=== PATIENT | female | born 1990 | race African-American/Black ===

== ENCOUNTER 2017-06-22 09:01 | Inpatient (IN) | payer OTHER ==
[~2017-06-22] VITALS: Ht 157.5 cm; Wt 139.7 kg
--- NOTE | 2017-06-22 09:21 | PHYS DOC ---
Adult General Chief Complaint Chief Complaint: ABDOMINAL PAIN HPI HPI Patient is a 26 year old female presents to the ED complaining of epigastric pain for the last 4 days. Patient describes the pain as sharp and burning. Associated symptoms include episodes of vomiting but no diarrhea. States she was diagnosed with gallstones back in last August. States the pain is now constant and not alleviating.Spicy foods and eating makes the pain worse. Seen on 06/20 at [facility], Sent to ED today for direct admission by Dr. Esquivel today (Imaging reports at bedside). Denies chest pain, shortness of breath, fever, dizziness, diarrhea, bloody stools or headaches. Review of Systems Review of Systems Constitutional: Denies fever or chills [] Eyes: Denies change in visual acuity, redness, or eye pain [] HENT: Denies nasal congestion or sore throat [] Respiratory: Denies cough or shortness of breath [] Cardiovascular: No additional information not addressed in HPI [] GI: Complains of abdominal pain, nausea, vomiting. Denies bloody stools or diarrhea [] : Denies dysuria or hematuria [] Musculoskeletal: Denies back pain or joint pain [] Integument: Denies rash or skin lesions [] Neurologic: Denies headache, focal weakness or sensory changes [] Endocrine: Denies polyuria or polydipsia [] Current Medications Current Medications Current Medications Medications (Trade) Dose Ordered Sig/Mino Start Time Stop Time Status Last Admin Dose Admin Hydromorphone HCl (Dilaudid) 0.5 mg 1X ONCE 06/22/17 10:15 06/22/17 10:16 DC 06/22/17 10:44 0.5 MG Ondansetron HCl (Zofran) 4 mg 1X ONCE 06/22/17 10:15 06/22/17 10:16 DC 06/22/17 10:44 4 MG Piperacillin Sod/ Tazobactam Sod 4.5 gm/Sodium Chloride 100 ml @ 200 mls/hr 1X ONCE 06/22/17 10:15 06/22/17 10:44 DC 06/22/17 10:45 200 MLS/HR Sodium Chloride 1,000 ml @ 1,000 mls/hr 1X ONCE 06/22/17 10:15 06/22/17 11:14 DC 06/22/17 10:40 1,000 MLS/HR Allergies Allergies Allergies Coded Allergies Type Severity Reaction Last Updated Verified No Known Drug Allergies 06/22/17 No Physical Exam Physical Exam Constitutional: Well developed, well nourished, no acute distress, non-toxic appearance. [] HENT: Normocephalic, atraumatic, bilateral external ears normal, oropharynx moist, no oral exudates, nose normal. [] Eyes: PERRLA, EOMI, conjunctiva normal, no discharge. [] Neck: Normal range of motion, no tenderness, supple, no stridor. [] Cardiovascular:Heart rate regular rhythm, no murmur [] Lungs & Thorax: Bilateral breath sounds clear to auscultation [] Abdomen: MILD RUQ TENDERNESS. Bowel sounds normal, soft, no masses, no pulsatile masses. [] Skin: Warm, dry, no erythema, no rash. [] Back: No tenderness, no CVA tenderness. [] Extremities: No tenderness, no cyanosis, no clubbing, ROM intact, no edema. [] Neurologic: Alert and oriented X 3, normal motor function, normal sensory function, no focal deficits noted. [] Psychologic: Affect normal, judgement normal, mood normal. [] Current Patient Data Vital Signs Vital Signs Date Time Temp Pulse Resp B/P (MAP) Pulse Ox O2 Delivery O2 Flow Rate FiO2 06/22/17 10:19 76 20 120/59 (79) 99 Room Air 06/22/17 09:20 99.4 99.4 Lab Values Laboratory Tests Test 06/22/17 09:10 06/22/17 09:16 06/22/17 09:35 06/22/17 10:25 Urine Collection Type Unknown Urine Color [place] Urine Clarity Clear Urine pH 6.0 Urine Specific [place] 1.020 Urine Protein Negative mg/dL (NEG-TRACE) Urine Glucose (UA) Negative mg/dL (NEG) Urine Ketones (Stick) 40 mg/dL (NEG) Urine Blood Negative (NEG) Urine Nitrite Negative (NEG) Urine Bilirubin Moderate (NEG) Urine Urobilinogen Dipstick 1.0 mg/dL (0.2 mg/dL) Urine Leukocyte Esterase Moderate (NEG) Urine RBC 0 /HPF (0-2) Urine WBC 5-10 /HPF (0-4) Urine Squamous Epithelial Cells Many /LPF Urine Bacteria Few /HPF (0-FEW) Urine Mucus Mod /LPF POC Urine HCG, Qualitative Hcg negative (Negative) Prothrombin Time 13.3 SEC (11.7-14.0) Prothrombin Time INR 1.1 (0.8-1.1) PTT 28 SEC (24-38) Sodium Level 139 mmol/L (136-145) Potassium Level 3.5 mmol/L (3.5-5.1) Chloride Level 103 mmol/L (98-107) Carbon Dioxide Level 28 mmol/L (21-32) Anion Gap 8 (6-14) Blood Urea Nitrogen 9 mg/dL (7-20) Creatinine 0.8 mg/dL (0.6-1.0) Estimated GFR (Cockcroft-Gault) 103.3 BUN/Creatinine Ratio 11 (6-20) Glucose Level 94 mg/dL (70-99) Calcium Level 8.8 mg/dL (8.5-10.1) Total Bilirubin 2.7 mg/dL (0.2-1.0) H Aspartate Amino Transferase (AST) 106 U/L (15-37) H Alanine Aminotransferase (ALT) 218 U/L (14-59) H Alkaline Phosphatase 212 U/L (46-116) H Total Protein 7.4 g/dL (6.4-8.2) Albumin 3.2 g/dL (3.4-5.0) L Albumin/Globulin Ratio 0.8 (1.0-1.7) L Lipase 689 U/L (73-393) H White Blood Count 7.2 x10^3/uL (4.0-11.0) Red Blood Count 4.45 x10^6/uL (3.50-5.40) Hemoglobin 12.9 g/dL (12.0-15.5) Hematocrit 38.2 % (36.0-47.0) Mean Corpuscular Volume 86 fL (79-100) Mean Corpuscular Hemoglobin 29 pg (25-35) Mean Corpuscular Hemoglobin Concent 34 g/dL (31-37) Red Cell Distribution Width 13.7 % (11.5-14.5) Platelet Count 196 x10^3/uL (140-400) Neutrophils (%) (Auto) 70 % (31-73) Lymphocytes (%) (Auto) 22 % (24-48) L Monocytes (%) (Auto) 7 % (0-9) Eosinophils (%) (Auto) 1 % (0-3) Basophils (%) (Auto) 1 % (0-3) Neutrophils # (Auto) 5.0 x10^3uL (1.8-7.7) Lymphocytes # (Auto) 1.6 x10^3/uL (1.0-4.8) Monocytes # (Auto) 0.5 x10^3/uL (0.0-1.1) Eosinophils # (Auto) 0.1 x10^3/uL (0.0-0.7) Basophils # (Auto) 0.1 x10^3/uL (0.0-0.2) Laboratory Tests 06/22/17 10:25 Laboratory Tests 06/22/17 09:35 EKG EKG [] Radiology/Procedures Radiology/Procedures [] Course & Med Decision Making Course & Med Decision Making Pertinent Labs and Imaging studies reviewed. (See chart for details) []Discussed labs and previous imaging with Dr. Neff. Agrees to admission and further management of patient. Spoke with Dr. Yost (GI) and Dr. Mcdonough ( Surgeon) who will see patient. Patient stable for admission. Patient well appearing. Pain controlled. Vitals stable, NAD. Dragon Disclaimer Dragon Disclaimer This electronic medical record was generated, in whole or in part, using a voice recognition dictation system. Departure Departure Impression: Primary Impression: Abdominal pain Additional Impressions: Cholelithiasis Pancreatitis Disposition: ADMITTED INPATIENT Admitting Physician: Deysi Neff Condition: STABLE Referrals: BOB MCKEON MD (PCP) Problem Qualifiers STEPHANIA NEWTON Jun 22, 2017 09:21
[2017-06-22 09:32] LABS: BILIRUBIN,URINE MODERATE (NEG); GLUCOSE,URINE NEGATIVE (NEG); NITRITE,URINE NEGATIVE (NEG); PROTEIN,URINE NEGATIVE (NEG-TRACE)
[2017-06-22 09:49] LABS: BACTERIA,URINE FEW /HPF (0-FEW); RBC,URINE 0 /HPF (0-2); SQUAMOUS EPITHELIAL CELL,UR MANY /LPF
[2017-06-22 09:57] LABS: INR 1.1 (0.8-1.1); PROTHROMBIN TIME PATIENT 13.3 SEC (11.7-14.0)
[2017-06-22 09:58] LABS: CALCIUM 8.8 mg/dL (8.5-10.1); CREATININE 0.8 mg/dL (0.6-1.0); GFR 103.3; POTASSIUM 3.5 mmol/L (3.5-5.1)
[2017-06-22 10:03] LABS: ALBUMIN 3.2 g/dL (3.4-5.0); ALBUMIN/GLOBULIN RATIO 0.8 (1.0-1.7); TOTAL BILIRUBIN 2.7 mg/dL (0.2-1.0); TOTAL PROTEIN 7.4 g/dL (6.4-8.2)
[2017-06-22] MEDS ORDERED: HYDROmorphone 2 MG/ML VIAL IV ONE (10:15)
[2017-06-22] MEDS ORDERED: ONDANSETRON PF 4 MG/2 ML VIAL. IV ONE (10:15)
[2017-06-22] MEDS ORDERED: IV NORMAL SALINE 1000ML BAG 1,000 ML IV ONE (10:15)
[2017-06-22] MEDS ORDERED: PIPERACILLIN/TAZOBACTAM 4.5 GM in IV NORMAL SALINE 100ML 100 ML IV ONE (10:15)
[2017-06-22 10:33] LABS: BASO # 0.1 x10^3/uL (0.0-0.2); BASO % 1 % (0-3); EOS % 1 % (0-3); HEMATOCRIT 38.2 % (36.0-47.0); HEMOGLOBIN 12.9 g/dL (12.0-15.5); LYMPH # 1.6 x10^3/uL (1.0-4.8); LYMPH % 22 % (24-48); MEAN CORPUSCULAR HEMOGLOBIN 29 pg (25-35); MEAN CORPUSCULAR HGB CONC 34 g/dL (31-37); MEAN CORPUSCULAR VOLUME 86 fL (79-100); MONO % 7 % (0-9); NEUT % 70 % (31-73); PLATELET COUNT 196 x10^3/uL (140-400); RED BLOOD COUNT 4.45 x10^6/uL (3.50-5.40); RED CELL DISTRIBUTION WIDTH 13.7 % (11.5-14.5); WHITE BLOOD COUNT 7.2 x10^3/uL (4.0-11.0)
[2017-06-22] MEDS ORDERED: ONDANSETRON PF 4 MG/2 ML VIAL. IV PRN (11:00)
[2017-06-22] MEDS ORDERED: MORPHINE SULFATE 2 MG/ML DISP.SYRIN. IV PRN (11:00)
[2017-06-22 11:30] VITALS: BP 112/53
--- NOTE | 2017-06-22 12:19 | PDOC2 ---
BEVERLY ELIZONDO LEATHER SCRUBBER 06/22/17 1218: CONSULT Date of Consult Date of Consult DATE: 06/22/17 TIME: 12:16 Reason for Consult Reason for Consult: cholelithiasis Referring Physician Referring Physician: ER Identification/Chief Complaint Chief Complaint abdominal pain Problems: Source Source: Chart review, Patient History of Present Illness Reason for Visit: Epigastric pain with radiation to back. Associated nausea and emesis. She has been having these symptoms since August (was seen at [facility] and found to have cholelithiasis). Seems aggravated by eating. Wednesday the pain returned , however did not improve. Seen at ER at [facility]--US showed cholelithiasis and normal lipase, T bili--mildly elevated AST/ALT. Pain continued and she came her. Past Medical History Past Medical History lupus, rheumatoid arthritis Past Surgical History Past Surgical History: Tubal Ligation Family History Family History: Other (+ gallbladder disease ) Social History No ALCOHOL: occassional Drugs: None Lives: with Family Current Problem List Problem List Problems Medical Problems: (1) Abdominal pain Status: Acute (2) Cholelithiasis Status: Acute Current Medications Current Medications Current Medications Piperacillin Sod/ Tazobactam Sod 4.5 gm/Sodium Chloride 100 ml @ 200 mls/hr 1X ONCE IV Last administered on 06/22/17 10:45; Start 06/22/17 at 10:15; Stop 06/22/17 at 10:44; Status DC Hydromorphone HCl (Dilaudid) 0.5 mg 1X ONCE IV Last administered on 06/22/17 10:44; Start 06/22/17 at 10:15; Stop 06/22/17 at 10:16; Status DC Ondansetron HCl (Zofran) 4 mg 1X ONCE IV Last administered on 06/22/17 10:44 ; Start 06/22/17 at 10:15; Stop 06/22/17 at 10:16; Status DC Sodium Chloride 1,000 ml @ 1,000 mls/hr 1X ONCE IV Last administered on t 10:40; Start 06/22/17 at 10:15; Stop 06/22/17 at 11:14; Status DC Ondansetron HCl (Zofran) 4 mg PRN Q8HRS PRN IV NAUSEA/VOMITING; Start 06/22/17 at 11:00; Stop 06/23/17 at 10:59 Morphine Sulfate 2 mg PRN Q2HR PRN IV PAIN; Start 06/22/17 at 11:00; Stop 06/23 at 10:59 Allergies Allergies: Coded Allergies: No Known Drug Allergies (Unverified , 06/22/17) ROS General: YES: Other (+ subjective fevers), No: Chills PSYCHOLOGICAL ROS: No: Anxiety, Depression Eyes: No Blurry vision, No Double vision HEENT: No: Heacaches, Sore Throat Hematological and Lymphatic: No: Bleeding Problems, Blood Clots Respiratory: YES: Shortness of breath (due to acute pain), No: Cough Cardiovascular: No Chest Pain, No Palpitations Gastrointestinal: Yes Other (see hpi) Genitourinary: No Dysuria, No Hematuria Musculoskeletal: No Joint Pain, No Muscle Pain Neurological: No Confusion, No Numbness/Tingling Skin: No Pruritus, No Rash Physical Exam General: Alert, Oriented X3, Cooperative, No acute distress HEENT: PERRLA, Mucous membr. moist/pink Lungs: Clear to auscultation, Normal air movement Heart: Regular rate, Normal S1, Normal S2, No murmurs Abdomen: Soft, Other (ND, ttp epigastric/RUQ, no LUQ TTP) Extremities: No clubbing, No cyanosis Skin: No rashes, No breakdown Neuro: Normal gait, Normal speech Psych/Mental Status: Mental status NL, Mood NL MUSCULOSKELETAL: No deformity, No swelling Vitals VITALS Vital Signs Date Time Temp Pulse Resp B/P (MAP) Pulse Ox O2 Delivery O2 Flow Rate FiO2 06/22/17 11:15 74 20 125/57 (79) 99 Room Air 06/22/17 09:20 99.4 99.4 Labs Labs Laboratory Tests Test 06/22/17 09:10 06/22/17 09:16 06/22/17 09:35 06/22/17 10:25 Urine Collection Type Unknown Urine Color [place] Urine Clarity Clear Urine pH 6.0 Urine Specific [place] 1.020 Urine Protein Negative mg/dL (NEG-TRACE) Urine Glucose (UA) Negative mg/dL (NEG) Urine Ketones (Stick) 40 mg/dL (NEG) Urine Blood Negative (NEG) Urine Nitrite Negative (NEG) Urine Bilirubin Moderate (NEG) Urine Urobilinogen Dipstick 1.0 mg/dL (0.2 mg/dL) Urine Leukocyte Esterase Moderate (NEG) Urine RBC 0 /HPF (0-2) Urine WBC 5-10 /HPF (0-4) Urine Squamous Epithelial Cells Many /LPF Urine Bacteria Few /HPF (0-FEW) Urine Mucus Mod /LPF Bedside Urine HCG, Qualitative Hcg negative (Negative) Prothrombin Time 13.3 SEC (11.7-14.0) Prothromb Time International Ratio 1.1 (0.8-1.1) Activated Partial Thromboplast Time 28 SEC (24-38) Sodium Level 139 mmol/L (136-145) Potassium Level 3.5 mmol/L (3.5-5.1) Chloride Level 103 mmol/L (98-107) Carbon Dioxide Level 28 mmol/L (21-32) Anion Gap 8 (6-14) Blood Urea Nitrogen 9 mg/dL (7-20) Creatinine 0.8 mg/dL (0.6-1.0) Estimated GFR (Cockcroft-Gault) 103.3 BUN/Creatinine Ratio 11 (6-20) Glucose Level 94 mg/dL (70-99) Calcium Level 8.8 mg/dL (8.5-10.1) Total Bilirubin 2.7 mg/dL (0.2-1.0) Aspartate Amino Transf (AST/SGOT) 106 U/L (15-37) Alanine Aminotransferase (ALT/SGPT) 218 U/L (14-59) Alkaline Phosphatase 212 U/L (46-116) Total Protein 7.4 g/dL (6.4-8.2) Albumin 3.2 g/dL (3.4-5.0) Albumin/Globulin Ratio 0.8 (1.0-1.7) Lipase 689 U/L (73-393) White Blood Count 7.2 x10^3/uL (4.0-11.0) Red Blood Count 4.45 x10^6/uL (3.50-5.40) Hemoglobin 12.9 g/dL (12.0-15.5) Hematocrit 38.2 % (36.0-47.0) Mean Corpuscular Volume 86 fL (79-100) Mean Corpuscular Hemoglobin 29 pg (25-35) Mean Corpuscular Hemoglobin Concent 34 g/dL (31-37) Red Cell Distribution Width 13.7 % (11.5-14.5) Platelet Count 196 x10^3/uL (140-400) Neutrophils (%) (Auto) 70 % (31-73) Lymphocytes (%) (Auto) 22 % (24-48) Monocytes (%) (Auto) 7 % (0-9) Eosinophils (%) (Auto) 1 % (0-3) Basophils (%) (Auto) 1 % (0-3) Neutrophils # (Auto) 5.0 x10^3uL (1.8-7.7) Lymphocytes # (Auto) 1.6 x10^3/uL (1.0-4.8) Monocytes # (Auto) 0.5 x10^3/uL (0.0-1.1) Eosinophils # (Auto) 0.1 x10^3/uL (0.0-0.7) Basophils # (Auto) 0.1 x10^3/uL (0.0-0.2) Laboratory Tests Test 06/22/17 09:10 06/22/17 09:16 06/22/17 09:35 06/22/17 10:25 Urine Collection Type Unknown Urine Color [place] Urine Clarity Clear Urine pH 6.0 Urine Specific [place] 1.020 Urine Protein Negative mg/dL (NEG-TRACE) Urine Glucose (UA) Negative mg/dL (NEG) Urine Ketones (Stick) 40 mg/dL (NEG) Urine Blood Negative (NEG) Urine Nitrite Negative (NEG) Urine Bilirubin Moderate (NEG) Urine Urobilinogen Dipstick 1.0 mg/dL (0.2 mg/dL) Urine Leukocyte Esterase Moderate (NEG) Urine RBC 0 /HPF (0-2) Urine WBC 5-10 /HPF (0-4) Urine Squamous Epithelial Cells Many /LPF Urine Bacteria Few /HPF (0-FEW) Urine Mucus Mod /LPF Bedside Urine HCG, Qualitative Hcg negative (Negative) Prothrombin Time 13.3 SEC (11.7-14.0) Prothromb Time International Ratio 1.1 (0.8-1.1) Activated Partial Thromboplast Time 28 SEC (24-38) Sodium Level 139 mmol/L (136-145) Potassium Level 3.5 mmol/L (3.5-5.1) Chloride Level 103 mmol/L (98-107) Carbon Dioxide Level 28 mmol/L (21-32) Anion Gap 8 (6-14) Blood Urea Nitrogen 9 mg/dL (7-20) Creatinine 0.8 mg/dL (0.6-1.0) Estimated GFR (Cockcroft-Gault) 103.3 BUN/Creatinine Ratio 11 (6-20) Glucose Level 94 mg/dL (70-99) Calcium Level 8.8 mg/dL (8.5-10.1) Total Bilirubin 2.7 mg/dL (0.2-1.0) Aspartate Amino Transf (AST/SGOT) 106 U/L (15-37) Alanine Aminotransferase (ALT/SGPT) 218 U/L (14-59) Alkaline Phosphatase 212 U/L (46-116) Total Protein 7.4 g/dL (6.4-8.2) Albumin 3.2 g/dL (3.4-5.0) Albumin/Globulin Ratio 0.8 (1.0-1.7) Lipase 689 U/L (73-393) White Blood Count 7.2 x10^3/uL (4.0-11.0) Red Blood Count 4.45 x10^6/uL (3.50-5.40) Hemoglobin 12.9 g/dL (12.0-15.5) Hematocrit 38.2 % (36.0-47.0) Mean Corpuscular Volume 86 fL (79-100) Mean Corpuscular Hemoglobin 29 pg (25-35) Mean Corpuscular Hemoglobin Concent 34 g/dL (31-37) Red Cell Distribution Width 13.7 % (11.5-14.5) Platelet Count 196 x10^3/uL (140-400) Neutrophils (%) (Auto) 70 % (31-73) Lymphocytes (%) (Auto) 22 % (24-48) Monocytes (%) (Auto) 7 % (0-9) Eosinophils (%) (Auto) 1 % (0-3) Basophils (%) (Auto) 1 % (0-3) Neutrophils # (Auto) 5.0 x10^3uL (1.8-7.7) Lymphocytes # (Auto) 1.6 x10^3/uL (1.0-4.8) Monocytes # (Auto) 0.5 x10^3/uL (0.0-1.1) Eosinophils # (Auto) 0.1 x10^3/uL (0.0-0.7) Basophils # (Auto) 0.1 x10^3/uL (0.0-0.2) Images Images US from [facility] 1. Cholelithiasis. No sonographic evidence of acute cholecystitis. 2. Prominent common bile duct with no ductal stone or definite obstructive mass identified. ERCP or MRCP could be obtained for further evaluation if there is continued clinical concern. Assessment/Plan Assessment/Plan gallstone pancreatitis elevated bili 2.7( was 1.0 at [facility]) Lipase 689(was 54 at [facility]) morbid obesity, BMI 56.3 RQ, lupus--currently does not take her meds for these bowel rest, hydration, pain control GI consult pending APOORVA BOURNE MD 06/23/17 0843: CONSULT Allergies Allergies: Coded Allergies: No Known Drug Allergies (Unverified , 06/22/17) Assessment/Plan Assessment/Plan Patient seen and examined by me. Complains of epigastric pain with nausea. Abd is obese TTP in the epigastrium. Elevated TBili and LFT's as well as amylase. Imagining at outside facilitiy showing gallstones. Gallstone pancreatitis, will treat with bowel rest and time for pancreatitis to resolve then L/S Cholecystectomy with IOC. Agree with Jacinta's assessment and plan. BEVERLY ELIZONDO APRN Jun 22, 2017 12:18 APOORVA BOURNE MD Jun 23, 2017 08:43
--- NOTE | 2017-06-22 12:51 | PDOC2 ---
GI CONSULT Reason For Consult: cholelithiasis, pancreatitis HPI: HPI: 26 y/o w/ known cholelithiasis, has had several previous attacks of RUQ and epigastric pain. Recurred last week (06/16), has been constant and associated w / n/v and SOA. Labs @ [facility] significant for bili 1, lipase 54. US @ [facility] showed cholelithiasis and prominent CBD. Labs here show normal WBC and INR, bili 2.7, AST 106, ALT 2018, Alk Phos 212, lipase 689. Denies reflux/heartburn, diarrhea, constipation, hematemesis, hematochezia, melena, weight loss. No previous EGD or colonoscopy. No NSAID use (says actually makes joint pain worse). NPO, was given IV atbx in ER. PMH: PMH: cholelithiasis, lupus (?and RA) - currently not followed by rheum but previously on Humira and prednisone, tubal ligation, right knee meniscus repair FH: Family History: Other (sister, mother, grandmother, and father - cholecystectomy) Social History: Smoke: No ALCOHOL: rare Drugs: None ROS: GEN: Denies fevers, chills, sweats HEENT: Denies blurred vision, sore throat CV: Denies chest pain RESP: +SOA GI: Per HPI : Denies hematuria, dysuria ENDO: Denies weight changes NEURO: Denies confusion, dizziness MSK: Denies weakness, joint pain/swelling SKIN: Denies jaundice, pruritus Vitals: Vitals: Vital Signs Date Time Temp Pulse Resp B/P (MAP) Pulse Ox O2 Delivery O2 Flow Rate FiO2 06/22/17 11:15 74 20 125/57 (79) 99 Room Air 06/22/17 09:20 99.4 99.4 Labs: Labs: Laboratory Tests Test 06/22/17 09:10 06/22/17 09:16 06/22/17 09:35 06/22/17 10:25 Urine Collection Type Unknown Urine Color [place] Urine Clarity Clear Urine pH 6.0 Urine Specific [place] 1.020 Urine Protein Negative mg/dL (NEG-TRACE) Urine Glucose (UA) Negative mg/dL (NEG) Urine Ketones (Stick) 40 mg/dL (NEG) Urine Blood Negative (NEG) Urine Nitrite Negative (NEG) Urine Bilirubin Moderate (NEG) Urine Urobilinogen Dipstick 1.0 mg/dL (0.2 mg/dL) Urine Leukocyte Esterase Moderate (NEG) Urine RBC 0 /HPF (0-2) Urine WBC 5-10 /HPF (0-4) Urine Squamous Epithelial Cells Many /LPF Urine Bacteria Few /HPF (0-FEW) Urine Mucus Mod /LPF Bedside Urine HCG, Qualitative Hcg negative (Negative) Prothrombin Time 13.3 SEC (11.7-14.0) Prothromb Time International Ratio 1.1 (0.8-1.1) Activated Partial Thromboplast Time 28 SEC (24-38) Sodium Level 139 mmol/L (136-145) Potassium Level 3.5 mmol/L (3.5-5.1) Chloride Level 103 mmol/L (98-107) Carbon Dioxide Level 28 mmol/L (21-32) Anion Gap 8 (6-14) Blood Urea Nitrogen 9 mg/dL (7-20) Creatinine 0.8 mg/dL (0.6-1.0) Estimated GFR (Cockcroft-Gault) 103.3 BUN/Creatinine Ratio 11 (6-20) Glucose Level 94 mg/dL (70-99) Calcium Level 8.8 mg/dL (8.5-10.1) Total Bilirubin 2.7 mg/dL (0.2-1.0) Aspartate Amino Transf (AST/SGOT) 106 U/L (15-37) Alanine Aminotransferase (ALT/SGPT) 218 U/L (14-59) Alkaline Phosphatase 212 U/L (46-116) Total Protein 7.4 g/dL (6.4-8.2) Albumin 3.2 g/dL (3.4-5.0) Albumin/Globulin Ratio 0.8 (1.0-1.7) Lipase 689 U/L (73-393) White Blood Count 7.2 x10^3/uL (4.0-11.0) Red Blood Count 4.45 x10^6/uL (3.50-5.40) Hemoglobin 12.9 g/dL (12.0-15.5) Hematocrit 38.2 % (36.0-47.0) Mean Corpuscular Volume 86 fL (79-100) Mean Corpuscular Hemoglobin 29 pg (25-35) Mean Corpuscular Hemoglobin Concent 34 g/dL (31-37) Red Cell Distribution Width 13.7 % (11.5-14.5) Platelet Count 196 x10^3/uL (140-400) Neutrophils (%) (Auto) 70 % (31-73) Lymphocytes (%) (Auto) 22 % (24-48) Monocytes (%) (Auto) 7 % (0-9) Eosinophils (%) (Auto) 1 % (0-3) Basophils (%) (Auto) 1 % (0-3) Neutrophils # (Auto) 5.0 x10^3uL (1.8-7.7) Lymphocytes # (Auto) 1.6 x10^3/uL (1.0-4.8) Monocytes # (Auto) 0.5 x10^3/uL (0.0-1.1) Eosinophils # (Auto) 0.1 x10^3/uL (0.0-0.7) Basophils # (Auto) 0.1 x10^3/uL (0.0-0.2) Allergies: Coded Allergies: No Known Drug Allergies (Unverified , 06/22/17) Medications: Current Medications Medications (Trade) Dose Ordered Sig/Mino Route PRN Reason Start Time Stop Time Status Last Admin Dose Admin Piperacillin Sod/ Tazobactam Sod 4.5 gm/Sodium Chloride 100 ml @ 200 mls/hr 1X ONCE IV 06/22/17 10:15 06/22/17 10:44 DC 06/22/17 10:45 Hydromorphone HCl (Dilaudid) 0.5 mg 1X ONCE IV 06/22/17 10:15 06/22/17 10:16 DC 06/22/17 10:44 Ondansetron HCl (Zofran) 4 mg 1X ONCE IV 06/22/17 10:15 06/22/17 10:16 DC 06/22/17 10:44 Sodium Chloride 1,000 ml @ 1,000 mls/hr 1X ONCE IV 06/22/17 10:15 06/22/17 11:14 DC 06/22/17 10:40 Imaging: Imaging: US @ [facility] US from [facility] 1. Cholelithiasis. No sonographic evidence of acute cholecystitis. 2. Prominent common bile duct with no ductal stone or definite obstructive mass identified. ERCP or MRCP could be obtained for further evaluation if there is continued clinical concern. PE: GEN: NAD HEENT: Atraumatic, PERRL LUNGS: clear anteriorly HEART: RRR ABD: NABS, S/ND, epigastric and RUQ discomfort, obese EXTREMITY: No edema SKIN: No rashes, no jaundice NEURO/PSYCH: A & O 3 A/P: A/P: Upper abd pain, n/v -several "attacks" since last year, known gallstones Elevated bilirubin, lipase -increasing from [facility] Cholelithiasis, prominent CBD (0.7cm) -US as above Obesity Lupus - untreated -- Reviewed w/ Dr. Yost - monitor labs and continue per surgery, eventually needs cholecystectomy w/ IOC, consider ERCP later if indicated. Should re-establish rheumatology as outpt. NEIL BARRIOS Jun 22, 2017 12:51
[2017-06-22] MEDS: IV NORMAL SALINE 1000ML BAG 1,000 ML IV SCH ×2 (13:45→23:14)
[2017-06-22] MEDS: MORPHINE SULFATE 4 MG/ML DISP.SYRIN. IV PRN ×3 (13:53→23:13)
--- NOTE | 2017-06-22 13:59 | PDOC1 ---
History and Physical Date of Admission Date of Admission DATE: 06/22/17 TIME: 13:53 Source Source: Chart review, Patient History of Present Illness History of Present Illness Ms. Harper, is a 26 year old female presents to the ED, had been in ER at [facility] days earlier for same, still havign acute abd pain, ongoing epigastric pain for the last 5 days. known prior gallstones, no interventions, acute pain only better now with IV pain meds + vomiting, no diarrhea, pain is sharp epigastric, stabbing, burning was 9.10 Past Medical History Cardiovascular: No pertinent hx Pulmonary: No pertinent hx GI: Other (known callstones) Heme/Onc: No pertinent hx Hepatobiliary: No pertinent hx Rheumatologic: No pertinent hx ENT: No pertinent hx Renal/: No pertinent hx Endocrine: No pertinent hx Dermatology: No pertinent hx Para: 4 Past Surgical History Past Surgical History: Tubal Ligation Family History Family History: Other (+ gallbladder disease ) Social History Smoke: No ALCOHOL: rare Drugs: None Current Problem List Problem List Problems Medical Problems: (1) Abdominal pain Status: Acute (2) Cholelithiasis Status: Acute Problems: Current Medications Current Medications Current Medications Piperacillin Sod/ Tazobactam Sod 4.5 gm/Sodium Chloride 100 ml @ 200 mls/hr 1X ONCE IV Last administered on 06/22/17 10:45; Start 06/22/17 at 10:15; Stop 06/22/17 at 10:44; Status DC Hydromorphone HCl (Dilaudid) 0.5 mg 1X ONCE IV Last administered on 06/22/17 10:44; Start 06/22/17 at 10:15; Stop 06/22/17 at 10:16; Status DC Ondansetron HCl (Zofran) 4 mg 1X ONCE IV Last administered on 06/22/17 10:44 ; Start 06/22/17 at 10:15; Stop 06/22/17 at 10:16; Status DC Sodium Chloride 1,000 ml @ 1,000 mls/hr 1X ONCE IV Last administered on t 10:40; Start 06/22/17 at 10:15; Stop 06/22/17 at 11:14; Status DC Ondansetron HCl (Zofran) 4 mg PRN Q8HRS PRN IV NAUSEA/VOMITING; Start 06/22/17 at 11:00; Stop 06/23/17 at 10:59 Morphine Sulfate 2 mg PRN Q2HR PRN IV PAIN; Start 06/22/17 at 11:00; Stop 06/22 at 13:42; Status DC Fentanyl Citrate (Fentanyl 2ml Vial) 75 mcg PRN Q2HRS PRN IV Severe pain; Start 06/22/17 at 13:45 Sodium Chloride 1,000 ml @ 125 mls/hr Q8H IV Last administered on 06/22/17t 13 :45; Start 06/22/17 at 13:45 Morphine Sulfate 2 mg PRN Q2HR PRN IV PAIN; Start 06/22/17 at 13:45 Potassium Chloride 100 ml @ 100 mls/hr Q1H IV ; Start 06/22/17 at 14:00; Stop 06/22/17 at 15:59 Allergies Allergies: Coded Allergies: No Known Drug Allergies (Unverified , 06/22/17) ROS General: YES: Fatigue, No: Chills, Night Sweats, Malaise, Appetite, Other PSYCHOLOGICAL ROS: YES: Anxiety, No: Behavioral Disorder, Concentration difficultie, Decreased libido, Depression, Disorientation, Hallucinations, Hostility, Irritablity, Memory difficulties, Mood Swings, Obsessive thoughts, Physical abuse, Sexual abuse, Sleep disturbances, Suicidal ideation, Other Eyes: No Blurry vision, No Decreased vision, No Double vision, No Dry eyes, No Excessive tearing, No Eye Pain, No Itchy Eyes, No Loss of vision, No Photophobia , No Scotomata, No Uses contacts, No Uses glasses, No Other HEENT: No: Heacaches, Visual Changes, Hearing change, Nasal congestion, Nasal discharge, Oral lesions, Sinus pain, Sore Throat, Epistaxis, Sneezing, Snoring, Tinnitus, Vertigo, Vocal changes, Other Respiratory: No: Cough, Hemoptysis, Orthopnea, Pleuritic Pain, Shortness of breath, SOB with excertion, Sputum Changes, Stridor, Tachypnea, Wheezing, Other Cardiovascular: No Chest Pain, No Palpitations, No Orthopnea, No Paroxysmal Noc. Dyspnea, No Edema, No Lt Headedness, No Other Gastrointestinal: Yes Nausea, Yes Abdominal Pain, No Vomiting, No Diarrhea, No Constipation, No Melena, No Hematochezia, No Other Genitourinary: No Dysuria, No Frequency, No Incontinence, No Hematuria, No Retention, No Discharge, No Urgency, No Pain, No Flank Pain, No Other, No , No , No , No , No , No , No Musculoskeletal: No Gait Disturbance, No Joint Pain, No Joint Stiffness, No Joint Swelling, No Muscle Pain, No Muscular Weakness, No Pain In:, No Swelling In:, No Other Neurological: No Behavorial Changes, No Bowel/Bladder ControlChng, No Confusion , No Dizziness, No Headaches, No Impaired Coord/balance, No Memory Loss, No Numbness/Tingling, No Seizures, No Speech Problems, No Tremors, No Visual Changes, No Weakness, No Other Skin: No Dry Skin, No Eczema, No Hair Changes, No Lumps, No Mole Changes, No Mottling, No Nail Changes, No Pruritus, No Rash, No Skin Lesion Changes, No Other, No Acne Physical Exam General: Alert, Oriented X3, Cooperative, No acute distress HEENT: EOMI, Mucous membr. moist/pink Lungs: Normal air movement Heart: no gallops, no murmurs Abdomen: Normal bowel sounds, Soft (tender, rebound) Rectal Exam: not examined Extremities: No cyanosis, No edema, Normal pulses Skin: No rashes, No significant lesion Neuro: Normal speech, Normal tone, Cranial nerves 3-12 NL Psych/Mental Status: Mood NL Vitals Vitals Vital Signs Date Time Temp Pulse Resp B/P (MAP) Pulse Ox O2 Delivery O2 Flow Rate FiO2 06/22/17 11:15 74 20 125/57 (79) 99 Room Air 06/22/17 09:20 99.4 99.4 Labs Labs Laboratory Tests Test 06/22/17 09:10 06/22/17 09:16 06/22/17 09:35 06/22/17 10:25 Urine Collection Type Unknown Urine Color [place] Urine Clarity Clear Urine pH 6.0 Urine Specific [place] 1.020 Urine Protein Negative mg/dL (NEG-TRACE) Urine Glucose (UA) Negative mg/dL (NEG) Urine Ketones (Stick) 40 mg/dL (NEG) Urine Blood Negative (NEG) Urine Nitrite Negative (NEG) Urine Bilirubin Moderate (NEG) Urine Urobilinogen Dipstick 1.0 mg/dL (0.2 mg/dL) Urine Leukocyte Esterase Moderate (NEG) Urine RBC 0 /HPF (0-2) Urine WBC 5-10 /HPF (0-4) Urine Squamous Epithelial Cells Many /LPF Urine Bacteria Few /HPF (0-FEW) Urine Mucus Mod /LPF Bedside Urine HCG, Qualitative Hcg negative (Negative) Prothrombin Time 13.3 SEC (11.7-14.0) Prothromb Time International Ratio 1.1 (0.8-1.1) Activated Partial Thromboplast Time 28 SEC (24-38) Sodium Level 139 mmol/L (136-145) Potassium Level 3.5 mmol/L (3.5-5.1) Chloride Level 103 mmol/L (98-107) Carbon Dioxide Level 28 mmol/L (21-32) Anion Gap 8 (6-14) Blood Urea Nitrogen 9 mg/dL (7-20) Creatinine 0.8 mg/dL (0.6-1.0) Estimated GFR (Cockcroft-Gault) 103.3 BUN/Creatinine Ratio 11 (6-20) Glucose Level 94 mg/dL (70-99) Calcium Level 8.8 mg/dL (8.5-10.1) Total Bilirubin 2.7 mg/dL (0.2-1.0) Aspartate Amino Transf (AST/SGOT) 106 U/L (15-37) Alanine Aminotransferase (ALT/SGPT) 218 U/L (14-59) Alkaline Phosphatase 212 U/L (46-116) Total Protein 7.4 g/dL (6.4-8.2) Albumin 3.2 g/dL (3.4-5.0) Albumin/Globulin Ratio 0.8 (1.0-1.7) Lipase 689 U/L (73-393) White Blood Count 7.2 x10^3/uL (4.0-11.0) Red Blood Count 4.45 x10^6/uL (3.50-5.40) Hemoglobin 12.9 g/dL (12.0-15.5) Hematocrit 38.2 % (36.0-47.0) Mean Corpuscular Volume 86 fL (79-100) Mean Corpuscular Hemoglobin 29 pg (25-35) Mean Corpuscular Hemoglobin Concent 34 g/dL (31-37) Red Cell Distribution Width 13.7 % (11.5-14.5) Platelet Count 196 x10^3/uL (140-400) Neutrophils (%) (Auto) 70 % (31-73) Lymphocytes (%) (Auto) 22 % (24-48) Monocytes (%) (Auto) 7 % (0-9) Eosinophils (%) (Auto) 1 % (0-3) Basophils (%) (Auto) 1 % (0-3) Neutrophils # (Auto) 5.0 x10^3uL (1.8-7.7) Lymphocytes # (Auto) 1.6 x10^3/uL (1.0-4.8) Monocytes # (Auto) 0.5 x10^3/uL (0.0-1.1) Eosinophils # (Auto) 0.1 x10^3/uL (0.0-0.7) Basophils # (Auto) 0.1 x10^3/uL (0.0-0.2) Laboratory Tests Test 06/22/17 09:10 06/22/17 09:16 06/22/17 09:35 06/22/17 10:25 Urine Collection Type Unknown Urine Color [place] Urine Clarity Clear Urine pH 6.0 Urine Specific [place] 1.020 Urine Protein Negative mg/dL (NEG-TRACE) Urine Glucose (UA) Negative mg/dL (NEG) Urine Ketones (Stick) 40 mg/dL (NEG) Urine Blood Negative (NEG) Urine Nitrite Negative (NEG) Urine Bilirubin Moderate (NEG) Urine Urobilinogen Dipstick 1.0 mg/dL (0.2 mg/dL) Urine Leukocyte Esterase Moderate (NEG) Urine RBC 0 /HPF (0-2) Urine WBC 5-10 /HPF (0-4) Urine Squamous Epithelial Cells Many /LPF Urine Bacteria Few /HPF (0-FEW) Urine Mucus Mod /LPF Bedside Urine HCG, Qualitative Hcg negative (Negative) Prothrombin Time 13.3 SEC (11.7-14.0) Prothromb Time International Ratio 1.1 (0.8-1.1) Activated Partial Thromboplast Time 28 SEC (24-38) Sodium Level 139 mmol/L (136-145) Potassium Level 3.5 mmol/L (3.5-5.1) Chloride Level 103 mmol/L (98-107) Carbon Dioxide Level 28 mmol/L (21-32) Anion Gap 8 (6-14) Blood Urea Nitrogen 9 mg/dL (7-20) Creatinine 0.8 mg/dL (0.6-1.0) Estimated GFR (Cockcroft-Gault) 103.3 BUN/Creatinine Ratio 11 (6-20) Glucose Level 94 mg/dL (70-99) Calcium Level 8.8 mg/dL (8.5-10.1) Total Bilirubin 2.7 mg/dL (0.2-1.0) Aspartate Amino Transf (AST/SGOT) 106 U/L (15-37) Alanine Aminotransferase (ALT/SGPT) 218 U/L (14-59) Alkaline Phosphatase 212 U/L (46-116) Total Protein 7.4 g/dL (6.4-8.2) Albumin 3.2 g/dL (3.4-5.0) Albumin/Globulin Ratio 0.8 (1.0-1.7) Lipase 689 U/L (73-393) White Blood Count 7.2 x10^3/uL (4.0-11.0) Red Blood Count 4.45 x10^6/uL (3.50-5.40) Hemoglobin 12.9 g/dL (12.0-15.5) Hematocrit 38.2 % (36.0-47.0) Mean Corpuscular Volume 86 fL (79-100) Mean Corpuscular Hemoglobin 29 pg (25-35) Mean Corpuscular Hemoglobin Concent 34 g/dL (31-37) Red Cell Distribution Width 13.7 % (11.5-14.5) Platelet Count 196 x10^3/uL (140-400) Neutrophils (%) (Auto) 70 % (31-73) Lymphocytes (%) (Auto) 22 % (24-48) Monocytes (%) (Auto) 7 % (0-9) Eosinophils (%) (Auto) 1 % (0-3) Basophils (%) (Auto) 1 % (0-3) Neutrophils # (Auto) 5.0 x10^3uL (1.8-7.7) Lymphocytes # (Auto) 1.6 x10^3/uL (1.0-4.8) Monocytes # (Auto) 0.5 x10^3/uL (0.0-1.1) Eosinophils # (Auto) 0.1 x10^3/uL (0.0-0.7) Basophils # (Auto) 0.1 x10^3/uL (0.0-0.2) VTE Prophylaxis Ordered VTE Prophylaxis Devices: Yes VTE Pharmacological Prophylaxi: No Assessment/Plan Assessment/Plan pancreatitis gallstone, impacted, transaminitis, Admit, GI and Surg consult, morbid obesity, BMI 56 IV pain meds, IV fluid 125 NPO until cleared, Hx Lupus? not medicated, TASIA SEYMOUR MD Jun 22, 2017 13:59
[2017-06-22] MEDS: POTASSIUM CHLORIDE 10MEQ 100 ML IV SCH ×2 (14:00→15:42)
[2017-06-22] MEDS ORDERED: SALIVA STIMULANT AGENT 44ML SPRAY BOTTLE. PO PRN (14:00)
[2017-06-22 15:15] VITALS: BP 121/67
[2017-06-22 18:40] VITALS: BP 121/67
[2017-06-22 19:55] VITALS: BP 101/48
[2017-06-22 23:20] VITALS: BP 125/57
[2017-06-23 03:20] VITALS: BP 156/73
[2017-06-23] MEDS: MORPHINE SULFATE 4 MG/ML DISP.SYRIN. IV PRN (05:40)
[2017-06-23 06:34] LABS: BASO # 0.1 x10^3/uL (0.0-0.2); BASO % 1 % (0-3); EOS % 1 % (0-3); LYMPH # 1.6 x10^3/uL (1.0-4.8); LYMPH % 20 % (24-48); MEAN CORPUSCULAR HEMOGLOBIN 29 pg (25-35); MEAN CORPUSCULAR HGB CONC 33 g/dL (31-37); MEAN CORPUSCULAR VOLUME 87 fL (79-100); MONO % 7 % (0-9); NEUT % 71 % (31-73); PLATELET COUNT 224 x10^3/uL (140-400); RED CELL DISTRIBUTION WIDTH 13.3 % (11.5-14.5)
[2017-06-23 06:52] LABS: ALBUMIN/GLOBULIN RATIO 0.7 (1.0-1.7); CALCIUM 8.5 mg/dL (8.5-10.1); CREATININE 0.8 mg/dL (0.6-1.0); GFR 103.3; POTASSIUM 3.6 mmol/L (3.5-5.1); TOTAL BILIRUBIN 1.7 mg/dL (0.2-1.0); TOTAL PROTEIN 7.5 g/dL (6.4-8.2)
[2017-06-23 07:00] VITALS: BP 125/69
--- NOTE | 2017-06-23 08:46 | PDOC ---
SURGICAL PROGRESS NOTE Subjective She is feeling a little better, less pain. No nausea Vital Signs Vital Signs Date Time Temp Pulse Resp B/P (MAP) Pulse Ox O2 Delivery O2 Flow Rate FiO2 06/23/17 07:00 98.5 73 18 125/69 (87) 97 Room Air 98.5 PATIENT HAS A HUBBARD: No General: Alert, Oriented X3, Cooperative, mild distress Abdomen: Normal bowel sounds, Soft, Other (TTP epigastrium) Labs Laboratory Tests Test 06/22/17 09:10 06/22/17 09:16 06/22/17 09:35 06/22/17 10:25 Urine Collection Type Unknown Urine Color [place] Urine Clarity Clear Urine pH 6.0 Urine Specific [place] 1.020 Urine Protein Negative mg/dL (NEG-TRACE) Urine Glucose (UA) Negative mg/dL (NEG) Urine Ketones (Stick) 40 mg/dL (NEG) Urine Blood Negative (NEG) Urine Nitrite Negative (NEG) Urine Bilirubin Moderate (NEG) Urine Urobilinogen Dipstick 1.0 mg/dL (0.2 mg/dL) Urine Leukocyte Esterase Moderate (NEG) Urine RBC 0 /HPF (0-2) Urine WBC 5-10 /HPF (0-4) Urine Squamous Epithelial Cells Many /LPF Urine Bacteria Few /HPF (0-FEW) Urine Mucus Mod /LPF Bedside Urine HCG, Qualitative Hcg negative (Negative) Prothrombin Time 13.3 SEC (11.7-14.0) Prothromb Time International Ratio 1.1 (0.8-1.1) Activated Partial Thromboplast Time 28 SEC (24-38) Sodium Level 139 mmol/L (136-145) Potassium Level 3.5 mmol/L (3.5-5.1) Chloride Level 103 mmol/L (98-107) Carbon Dioxide Level 28 mmol/L (21-32) Anion Gap 8 (6-14) Blood Urea Nitrogen 9 mg/dL (7-20) Creatinine 0.8 mg/dL (0.6-1.0) Estimated GFR (Cockcroft-Gault) 103.3 BUN/Creatinine Ratio 11 (6-20) Glucose Level 94 mg/dL (70-99) Calcium Level 8.8 mg/dL (8.5-10.1) Total Bilirubin 2.7 mg/dL (0.2-1.0) Aspartate Amino Transf (AST/SGOT) 106 U/L (15-37) Alanine Aminotransferase (ALT/SGPT) 218 U/L (14-59) Alkaline Phosphatase 212 U/L (46-116) Total Protein 7.4 g/dL (6.4-8.2) Albumin 3.2 g/dL (3.4-5.0) Albumin/Globulin Ratio 0.8 (1.0-1.7) Lipase 689 U/L (73-393) White Blood Count 7.2 x10^3/uL (4.0-11.0) Red Blood Count 4.45 x10^6/uL (3.50-5.40) Hemoglobin 12.9 g/dL (12.0-15.5) Hematocrit 38.2 % (36.0-47.0) Mean Corpuscular Volume 86 fL (79-100) Mean Corpuscular Hemoglobin 29 pg (25-35) Mean Corpuscular Hemoglobin Concent 34 g/dL (31-37) Red Cell Distribution Width 13.7 % (11.5-14.5) Platelet Count 196 x10^3/uL (140-400) Neutrophils (%) (Auto) 70 % (31-73) Lymphocytes (%) (Auto) 22 % (24-48) Monocytes (%) (Auto) 7 % (0-9) Eosinophils (%) (Auto) 1 % (0-3) Basophils (%) (Auto) 1 % (0-3) Neutrophils # (Auto) 5.0 x10^3uL (1.8-7.7) Lymphocytes # (Auto) 1.6 x10^3/uL (1.0-4.8) Monocytes # (Auto) 0.5 x10^3/uL (0.0-1.1) Eosinophils # (Auto) 0.1 x10^3/uL (0.0-0.7) Basophils # (Auto) 0.1 x10^3/uL (0.0-0.2) Test 06/23/17 05:50 White Blood Count 8.0 x10^3/uL (4.0-11.0) Red Blood Count 4.50 x10^6/uL (3.50-5.40) Hemoglobin 13.0 g/dL (12.0-15.5) Hematocrit 39.0 % (36.0-47.0) Mean Corpuscular Volume 87 fL (79-100) Mean Corpuscular Hemoglobin 29 pg (25-35) Mean Corpuscular Hemoglobin Concent 33 g/dL (31-37) Red Cell Distribution Width 13.3 % (11.5-14.5) Platelet Count 224 x10^3/uL (140-400) Neutrophils (%) (Auto) 71 % (31-73) Lymphocytes (%) (Auto) 20 % (24-48) Monocytes (%) (Auto) 7 % (0-9) Eosinophils (%) (Auto) 1 % (0-3) Basophils (%) (Auto) 1 % (0-3) Neutrophils # (Auto) 5.7 x10^3uL (1.8-7.7) Lymphocytes # (Auto) 1.6 x10^3/uL (1.0-4.8) Monocytes # (Auto) 0.6 x10^3/uL (0.0-1.1) Eosinophils # (Auto) 0.1 x10^3/uL (0.0-0.7) Basophils # (Auto) 0.1 x10^3/uL (0.0-0.2) Sodium Level 140 mmol/L (136-145) Potassium Level 3.6 mmol/L (3.5-5.1) Chloride Level 106 mmol/L (98-107) Carbon Dioxide Level 23 mmol/L (21-32) Anion Gap 11 (6-14) Blood Urea Nitrogen 10 mg/dL (7-20) Creatinine 0.8 mg/dL (0.6-1.0) Estimated GFR (Cockcroft-Gault) 103.3 BUN/Creatinine Ratio 13 (6-20) Glucose Level 67 mg/dL (70-99) Calcium Level 8.5 mg/dL (8.5-10.1) Total Bilirubin 1.7 mg/dL (0.2-1.0) Aspartate Amino Transf (AST/SGOT) 61 U/L (15-37) Alanine Aminotransferase (ALT/SGPT) 180 U/L (14-59) Alkaline Phosphatase 230 U/L (46-116) Total Protein 7.5 g/dL (6.4-8.2) Albumin 3.0 g/dL (3.4-5.0) Albumin/Globulin Ratio 0.7 (1.0-1.7) Lipase 582 U/L (73-393) Laboratory Tests Test 06/22/17 09:10 06/22/17 09:16 06/22/17 09:35 06/22/17 10:25 Urine Collection Type Unknown Urine Color [place] Urine Clarity Clear Urine pH 6.0 Urine Specific [place] 1.020 Urine Protein Negative mg/dL (NEG-TRACE) Urine Glucose (UA) Negative mg/dL (NEG) Urine Ketones (Stick) 40 mg/dL (NEG) Urine Blood Negative (NEG) Urine Nitrite Negative (NEG) Urine Bilirubin Moderate (NEG) Urine Urobilinogen Dipstick 1.0 mg/dL (0.2 mg/dL) Urine Leukocyte Esterase Moderate (NEG) Urine RBC 0 /HPF (0-2) Urine WBC 5-10 /HPF (0-4) Urine Squamous Epithelial Cells Many /LPF Urine Bacteria Few /HPF (0-FEW) Urine Mucus Mod /LPF Bedside Urine HCG, Qualitative Hcg negative (Negative) Prothrombin Time 13.3 SEC (11.7-14.0) Prothromb Time International Ratio 1.1 (0.8-1.1) Activated Partial Thromboplast Time 28 SEC (24-38) Sodium Level 139 mmol/L (136-145) Potassium Level 3.5 mmol/L (3.5-5.1) Chloride Level 103 mmol/L (98-107) Carbon Dioxide Level 28 mmol/L (21-32) Anion Gap 8 (6-14) Blood Urea Nitrogen 9 mg/dL (7-20) Creatinine 0.8 mg/dL (0.6-1.0) Estimated GFR (Cockcroft-Gault) 103.3 BUN/Creatinine Ratio 11 (6-20) Glucose Level 94 mg/dL (70-99) Calcium Level 8.8 mg/dL (8.5-10.1) Total Bilirubin 2.7 mg/dL (0.2-1.0) Aspartate Amino Transf (AST/SGOT) 106 U/L (15-37) Alanine Aminotransferase (ALT/SGPT) 218 U/L (14-59) Alkaline Phosphatase 212 U/L (46-116) Total Protein 7.4 g/dL (6.4-8.2) Albumin 3.2 g/dL (3.4-5.0) Albumin/Globulin Ratio 0.8 (1.0-1.7) Lipase 689 U/L (73-393) White Blood Count 7.2 x10^3/uL (4.0-11.0) Red Blood Count 4.45 x10^6/uL (3.50-5.40) Hemoglobin 12.9 g/dL (12.0-15.5) Hematocrit 38.2 % (36.0-47.0) Mean Corpuscular Volume 86 fL (79-100) Mean Corpuscular Hemoglobin 29 pg (25-35) Mean Corpuscular Hemoglobin Concent 34 g/dL (31-37) Red Cell Distribution Width 13.7 % (11.5-14.5) Platelet Count 196 x10^3/uL (140-400) Neutrophils (%) (Auto) 70 % (31-73) Lymphocytes (%) (Auto) 22 % (24-48) Monocytes (%) (Auto) 7 % (0-9) Eosinophils (%) (Auto) 1 % (0-3) Basophils (%) (Auto) 1 % (0-3) Neutrophils # (Auto) 5.0 x10^3uL (1.8-7.7) Lymphocytes # (Auto) 1.6 x10^3/uL (1.0-4.8) Monocytes # (Auto) 0.5 x10^3/uL (0.0-1.1) Eosinophils # (Auto) 0.1 x10^3/uL (0.0-0.7) Basophils # (Auto) 0.1 x10^3/uL (0.0-0.2) Test 06/23/17 05:50 White Blood Count 8.0 x10^3/uL (4.0-11.0) Red Blood Count 4.50 x10^6/uL (3.50-5.40) Hemoglobin 13.0 g/dL (12.0-15.5) Hematocrit 39.0 % (36.0-47.0) Mean Corpuscular Volume 87 fL (79-100) Mean Corpuscular Hemoglobin 29 pg (25-35) Mean Corpuscular Hemoglobin Concent 33 g/dL (31-37) Red Cell Distribution Width 13.3 % (11.5-14.5) Platelet Count 224 x10^3/uL (140-400) Neutrophils (%) (Auto) 71 % (31-73) Lymphocytes (%) (Auto) 20 % (24-48) Monocytes (%) (Auto) 7 % (0-9) Eosinophils (%) (Auto) 1 % (0-3) Basophils (%) (Auto) 1 % (0-3) Neutrophils # (Auto) 5.7 x10^3uL (1.8-7.7) Lymphocytes # (Auto) 1.6 x10^3/uL (1.0-4.8) Monocytes # (Auto) 0.6 x10^3/uL (0.0-1.1) Eosinophils # (Auto) 0.1 x10^3/uL (0.0-0.7) Basophils # (Auto) 0.1 x10^3/uL (0.0-0.2) Sodium Level 140 mmol/L (136-145) Potassium Level 3.6 mmol/L (3.5-5.1) Chloride Level 106 mmol/L (98-107) Carbon Dioxide Level 23 mmol/L (21-32) Anion Gap 11 (6-14) Blood Urea Nitrogen 10 mg/dL (7-20) Creatinine 0.8 mg/dL (0.6-1.0) Estimated GFR (Cockcroft-Gault) 103.3 BUN/Creatinine Ratio 13 (6-20) Glucose Level 67 mg/dL (70-99) Calcium Level 8.5 mg/dL (8.5-10.1) Total Bilirubin 1.7 mg/dL (0.2-1.0) Aspartate Amino Transf (AST/SGOT) 61 U/L (15-37) Alanine Aminotransferase (ALT/SGPT) 180 U/L (14-59) Alkaline Phosphatase 230 U/L (46-116) Total Protein 7.5 g/dL (6.4-8.2) Albumin 3.0 g/dL (3.4-5.0) Albumin/Globulin Ratio 0.7 (1.0-1.7) Lipase 582 U/L (73-393) Problem List Problems Medical Problems: (1) Abdominal pain Status: Acute (2) Cholelithiasis Status: Acute (3) Pancreatitis Status: Acute Assessment/Plan Gallstone pancreatitis with improving lft's and TBili Continue bowel rest, may have ice chips and sips of water Plan L/S Cristin Wednesday if pancreatitis continues to improve Problems: APOORVA BOURNE MD Jun 23, 2017 08:46
[2017-06-23] MEDS ORDERED: DOCUSATE SODIUM 100 MG CAPSULE. PO PRN (09:45)
[2017-06-23] MEDS ORDERED: ACETAMINOPHEN 325 MG TABLET. PO PRN (09:45)
[2017-06-23] MEDS ORDERED: hydrALAZINE 20 MG/ML VIAL. IVP PRN (09:45)
[2017-06-23] MEDS ORDERED: ONDANSETRON PF 4 MG/2 ML VIAL. IV PRN (09:45)
[2017-06-23] MEDS ORDERED: MORPHINE SULFATE 2 MG/ML DISP.SYRIN. IV PRN (09:45)
[2017-06-23 11:00] VITALS: BP 132/69
[2017-06-23] MEDS: IV NORMAL SALINE 1000ML BAG 1,000 ML IV SCH ×4 (11:00→22:41)
--- NOTE | 2017-06-23 11:06 | PDOC ---
Subjective: Subjective: Pain maybe a little better. No n/v. Objective: Objective: Reviewed Dr. Mcdonough's note - plans to try ice chips and sips of water. Vital Signs: Vital Signs Date Time Temp Pulse Resp B/P (MAP) Pulse Ox O2 Delivery O2 Flow Rate FiO2 06/23/17 07:00 98.5 73 18 125/69 (87) 97 Room Air 98.5 Labs: Laboratory Tests Test 06/23/17 05:50 White Blood Count 8.0 x10^3/uL Red Blood Count 4.50 x10^6/uL Hemoglobin 13.0 g/dL Hematocrit 39.0 % Mean Corpuscular Volume 87 fL Mean Corpuscular Hemoglobin 29 pg Mean Corpuscular Hemoglobin Concent 33 g/dL Red Cell Distribution Width 13.3 % Platelet Count 224 x10^3/uL Neutrophils (%) (Auto) 71 % Lymphocytes (%) (Auto) 20 % Monocytes (%) (Auto) 7 % Eosinophils (%) (Auto) 1 % Basophils (%) (Auto) 1 % Neutrophils # (Auto) 5.7 x10^3uL Lymphocytes # (Auto) 1.6 x10^3/uL Monocytes # (Auto) 0.6 x10^3/uL Eosinophils # (Auto) 0.1 x10^3/uL Basophils # (Auto) 0.1 x10^3/uL Sodium Level 140 mmol/L Potassium Level 3.6 mmol/L Chloride Level 106 mmol/L Carbon Dioxide Level 23 mmol/L Anion Gap 11 Blood Urea Nitrogen 10 mg/dL Creatinine 0.8 mg/dL Estimated GFR (Cockcroft-Gault) 103.3 BUN/Creatinine Ratio 13 Glucose Level 67 mg/dL Calcium Level 8.5 mg/dL Total Bilirubin 1.7 mg/dL Aspartate Amino Transf (AST/SGOT) 61 U/L Alanine Aminotransferase (ALT/SGPT) 180 U/L Alkaline Phosphatase 230 U/L Total Protein 7.5 g/dL Albumin 3.0 g/dL Albumin/Globulin Ratio 0.7 Lipase 582 U/L PE: GEN: NAD, was asleep LUNGS: clear HEART: RRR ABD: epigastric tenderness NEURO/PSYCH: A & O 3 A/P: Cholelithiasis, prominent CBD Upper abd pain Elevated LFTs, lipase - some improvement today -- Tentative plans for cholecystectomy on 06/25. NEIL BARRIOS Jun 23, 2017 11:06
--- NOTE | 2017-06-23 13:05 | PDOC ---
PROGRESS NOTES Chief Complaint Chief Complaint abd pain with cholelithiasis mild elevated lipase with ? pancreatitis elevated transaminitis morbid obesity, BMI 56 Hx Lupus, but pt chose not taking meds at this time point plan: fu with gi, sx plan to do lap allen on wednesday clear liquid diet lipase, LFT daily increase ivf to 150cc/h gi, dvt ppx History of Present Illness History of Present Illness ROS: no fever, chills, sob or chest pain still abd pain, 5/10, epigastric no N/V, has gas, no bm X2 days lipase , LFT slightly better Vitals Vitals Vital Signs Date Time Temp Pulse Resp B/P (MAP) Pulse Ox O2 Delivery O2 Flow Rate FiO2 06/23/17 07:00 98.5 73 18 125/69 (87) 97 Room Air 98.5 Physical Exam General: Alert, Oriented X3, Cooperative, mild distress Heart: Regular rate, Normal S1, Normal S2, No murmurs Lungs: Clear Abdomen: Normal bowel sounds, Soft, Other (mild tenderness at epigastrium) Extremities: No cyanosis, No edema, Normal pulses Skin: No rashes, No significant lesion Labs LABS Laboratory Tests Test 06/23/17 05:50 White Blood Count 8.0 x10^3/uL (4.0-11.0) Red Blood Count 4.50 x10^6/uL (3.50-5.40) Hemoglobin 13.0 g/dL (12.0-15.5) Hematocrit 39.0 % (36.0-47.0) Mean Corpuscular Volume 87 fL (79-100) Mean Corpuscular Hemoglobin 29 pg (25-35) Mean Corpuscular Hemoglobin Concent 33 g/dL (31-37) Red Cell Distribution Width 13.3 % (11.5-14.5) Platelet Count 224 x10^3/uL (140-400) Neutrophils (%) (Auto) 71 % (31-73) Lymphocytes (%) (Auto) 20 % (24-48) Monocytes (%) (Auto) 7 % (0-9) Eosinophils (%) (Auto) 1 % (0-3) Basophils (%) (Auto) 1 % (0-3) Neutrophils # (Auto) 5.7 x10^3uL (1.8-7.7) Lymphocytes # (Auto) 1.6 x10^3/uL (1.0-4.8) Monocytes # (Auto) 0.6 x10^3/uL (0.0-1.1) Eosinophils # (Auto) 0.1 x10^3/uL (0.0-0.7) Basophils # (Auto) 0.1 x10^3/uL (0.0-0.2) Sodium Level 140 mmol/L (136-145) Potassium Level 3.6 mmol/L (3.5-5.1) Chloride Level 106 mmol/L (98-107) Carbon Dioxide Level 23 mmol/L (21-32) Anion Gap 11 (6-14) Blood Urea Nitrogen 10 mg/dL (7-20) Creatinine 0.8 mg/dL (0.6-1.0) Estimated GFR (Cockcroft-Gault) 103.3 BUN/Creatinine Ratio 13 (6-20) Glucose Level 67 mg/dL (70-99) Calcium Level 8.5 mg/dL (8.5-10.1) Total Bilirubin 1.7 mg/dL (0.2-1.0) Aspartate Amino Transf (AST/SGOT) 61 U/L (15-37) Alanine Aminotransferase (ALT/SGPT) 180 U/L (14-59) Alkaline Phosphatase 230 U/L (46-116) Total Protein 7.5 g/dL (6.4-8.2) Albumin 3.0 g/dL (3.4-5.0) Albumin/Globulin Ratio 0.7 (1.0-1.7) Lipase 582 U/L (73-393) Assessment and Plan Assessmemt and Plan Problems Medical Problems: (1) Abdominal pain Status: Acute (2) Cholelithiasis Status: Acute (3) Pancreatitis Status: Acute Problems: Comment Review of Relevant I have reviewed the following items gulshan (where applicable) has been applied. Labs Laboratory Tests Test 06/22/17 09:10 06/22/17 09:16 06/22/17 09:35 06/22/17 10:25 Urine Collection Type Unknown Urine Color [place] Urine Clarity Clear Urine pH 6.0 Urine Specific [place] 1.020 Urine Protein Negative mg/dL (NEG-TRACE) Urine Glucose (UA) Negative mg/dL (NEG) Urine Ketones (Stick) 40 mg/dL (NEG) Urine Blood Negative (NEG) Urine Nitrite Negative (NEG) Urine Bilirubin Moderate (NEG) Urine Urobilinogen Dipstick 1.0 mg/dL (0.2 mg/dL) Urine Leukocyte Esterase Moderate (NEG) Urine RBC 0 /HPF (0-2) Urine WBC 5-10 /HPF (0-4) Urine Squamous Epithelial Cells Many /LPF Urine Bacteria Few /HPF (0-FEW) Urine Mucus Mod /LPF Bedside Urine HCG, Qualitative Hcg negative (Negative) Prothrombin Time 13.3 SEC (11.7-14.0) Prothromb Time International Ratio 1.1 (0.8-1.1) Activated Partial Thromboplast Time 28 SEC (24-38) Sodium Level 139 mmol/L (136-145) Potassium Level 3.5 mmol/L (3.5-5.1) Chloride Level 103 mmol/L (98-107) Carbon Dioxide Level 28 mmol/L (21-32) Anion Gap 8 (6-14) Blood Urea Nitrogen 9 mg/dL (7-20) Creatinine 0.8 mg/dL (0.6-1.0) Estimated GFR (Cockcroft-Gault) 103.3 BUN/Creatinine Ratio 11 (6-20) Glucose Level 94 mg/dL (70-99) Calcium Level 8.8 mg/dL (8.5-10.1) Total Bilirubin 2.7 mg/dL (0.2-1.0) Aspartate Amino Transf (AST/SGOT) 106 U/L (15-37) Alanine Aminotransferase (ALT/SGPT) 218 U/L (14-59) Alkaline Phosphatase 212 U/L (46-116) Total Protein 7.4 g/dL (6.4-8.2) Albumin 3.2 g/dL (3.4-5.0) Albumin/Globulin Ratio 0.8 (1.0-1.7) Lipase 689 U/L (73-393) White Blood Count 7.2 x10^3/uL (4.0-11.0) Red Blood Count 4.45 x10^6/uL (3.50-5.40) Hemoglobin 12.9 g/dL (12.0-15.5) Hematocrit 38.2 % (36.0-47.0) Mean Corpuscular Volume 86 fL (79-100) Mean Corpuscular Hemoglobin 29 pg (25-35) Mean Corpuscular Hemoglobin Concent 34 g/dL (31-37) Red Cell Distribution Width 13.7 % (11.5-14.5) Platelet Count 196 x10^3/uL (140-400) Neutrophils (%) (Auto) 70 % (31-73) Lymphocytes (%) (Auto) 22 % (24-48) Monocytes (%) (Auto) 7 % (0-9) Eosinophils (%) (Auto) 1 % (0-3) Basophils (%) (Auto) 1 % (0-3) Neutrophils # (Auto) 5.0 x10^3uL (1.8-7.7) Lymphocytes # (Auto) 1.6 x10^3/uL (1.0-4.8) Monocytes # (Auto) 0.5 x10^3/uL (0.0-1.1) Eosinophils # (Auto) 0.1 x10^3/uL (0.0-0.7) Basophils # (Auto) 0.1 x10^3/uL (0.0-0.2) Test 06/23/17 05:50 White Blood Count 8.0 x10^3/uL (4.0-11.0) Red Blood Count 4.50 x10^6/uL (3.50-5.40) Hemoglobin 13.0 g/dL (12.0-15.5) Hematocrit 39.0 % (36.0-47.0) Mean Corpuscular Volume 87 fL (79-100) Mean Corpuscular Hemoglobin 29 pg (25-35) Mean Corpuscular Hemoglobin Concent 33 g/dL (31-37) Red Cell Distribution Width 13.3 % (11.5-14.5) Platelet Count 224 x10^3/uL (140-400) Neutrophils (%) (Auto) 71 % (31-73) Lymphocytes (%) (Auto) 20 % (24-48) Monocytes (%) (Auto) 7 % (0-9) Eosinophils (%) (Auto) 1 % (0-3) Basophils (%) (Auto) 1 % (0-3) Neutrophils # (Auto) 5.7 x10^3uL (1.8-7.7) Lymphocytes # (Auto) 1.6 x10^3/uL (1.0-4.8) Monocytes # (Auto) 0.6 x10^3/uL (0.0-1.1) Eosinophils # (Auto) 0.1 x10^3/uL (0.0-0.7) Basophils # (Auto) 0.1 x10^3/uL (0.0-0.2) Sodium Level 140 mmol/L (136-145) Potassium Level 3.6 mmol/L (3.5-5.1) Chloride Level 106 mmol/L (98-107) Carbon Dioxide Level 23 mmol/L (21-32) Anion Gap 11 (6-14) Blood Urea Nitrogen 10 mg/dL (7-20) Creatinine 0.8 mg/dL (0.6-1.0) Estimated GFR (Cockcroft-Gault) 103.3 BUN/Creatinine Ratio 13 (6-20) Glucose Level 67 mg/dL (70-99) Calcium Level 8.5 mg/dL (8.5-10.1) Total Bilirubin 1.7 mg/dL (0.2-1.0) Aspartate Amino Transf (AST/SGOT) 61 U/L (15-37) Alanine Aminotransferase (ALT/SGPT) 180 U/L (14-59) Alkaline Phosphatase 230 U/L (46-116) Total Protein 7.5 g/dL (6.4-8.2) Albumin 3.0 g/dL (3.4-5.0) Albumin/Globulin Ratio 0.7 (1.0-1.7) Lipase 582 U/L (73-393) Laboratory Tests Test 06/23/17 05:50 White Blood Count 8.0 x10^3/uL (4.0-11.0) Red Blood Count 4.50 x10^6/uL (3.50-5.40) Hemoglobin 13.0 g/dL (12.0-15.5) Hematocrit 39.0 % (36.0-47.0) Mean Corpuscular Volume 87 fL (79-100) Mean Corpuscular Hemoglobin 29 pg (25-35) Mean Corpuscular Hemoglobin Concent 33 g/dL (31-37) Red Cell Distribution Width 13.3 % (11.5-14.5) Platelet Count 224 x10^3/uL (140-400) Neutrophils (%) (Auto) 71 % (31-73) Lymphocytes (%) (Auto) 20 % (24-48) Monocytes (%) (Auto) 7 % (0-9) Eosinophils (%) (Auto) 1 % (0-3) Basophils (%) (Auto) 1 % (0-3) Neutrophils # (Auto) 5.7 x10^3uL (1.8-7.7) Lymphocytes # (Auto) 1.6 x10^3/uL (1.0-4.8) Monocytes # (Auto) 0.6 x10^3/uL (0.0-1.1) Eosinophils # (Auto) 0.1 x10^3/uL (0.0-0.7) Basophils # (Auto) 0.1 x10^3/uL (0.0-0.2) Sodium Level 140 mmol/L (136-145) Potassium Level 3.6 mmol/L (3.5-5.1) Chloride Level 106 mmol/L (98-107) Carbon Dioxide Level 23 mmol/L (21-32) Anion Gap 11 (6-14) Blood Urea Nitrogen 10 mg/dL (7-20) Creatinine 0.8 mg/dL (0.6-1.0) Estimated GFR (Cockcroft-Gault) 103.3 BUN/Creatinine Ratio 13 (6-20) Glucose Level 67 mg/dL (70-99) Calcium Level 8.5 mg/dL (8.5-10.1) Total Bilirubin 1.7 mg/dL (0.2-1.0) Aspartate Amino Transf (AST/SGOT) 61 U/L (15-37) Alanine Aminotransferase (ALT/SGPT) 180 U/L (14-59) Alkaline Phosphatase 230 U/L (46-116) Total Protein 7.5 g/dL (6.4-8.2) Albumin 3.0 g/dL (3.4-5.0) Albumin/Globulin Ratio 0.7 (1.0-1.7) Lipase 582 U/L (73-393) Medications Current Medications Piperacillin Sod/ Tazobactam Sod 4.5 gm/Sodium Chloride 100 ml @ 200 mls/hr 1X ONCE IV Last administered on 06/22/17t 10:45; Start 06/22/17 at 10:15; Stop 06/22/17 at 10:44; Status DC Hydromorphone HCl (Dilaudid) 0.5 mg 1X ONCE IV Last administered on 06/22/17 10:44; Start 06/22/17 at 10:15; Stop 06/22/17 at 10:16; Status DC Ondansetron HCl (Zofran) 4 mg 1X ONCE IV Last administered on 06/22/17 10:44 ; Start 06/22/17 at 10:15; Stop 06/22/17 at 10:16; Status DC Sodium Chloride 1,000 ml @ 1,000 mls/hr 1X ONCE IV Last administered on 10:40; Start 06/22/17 at 10:15; Stop 06/22/17 at 11:14; Status DC Ondansetron HCl (Zofran) 4 mg PRN Q8HRS PRN IV NAUSEA/VOMITING; Start 06/22/17 at 11:00; Stop 06/23/17 at 10:59; Status DC Morphine Sulfate 2 mg PRN Q2HR PRN IV PAIN; Start 06/22/17 at 11:00; Stop 06/22 at 13:42; Status DC Fentanyl Citrate (Fentanyl 2ml Vial) 75 mcg PRN Q2HRS PRN IV Severe pain; Start 06/22/17 at 13:45 Sodium Chloride 1,000 ml @ 150 mls/hr Q6H40M IV Last administered on 11:00; Start 06/22/17 at 13:45 Morphine Sulfate 2 mg PRN Q2HR PRN IV PAIN Last administered on 06/23/17 05:40 ; Start 06/22/17 at 13:45 Potassium Chloride 100 ml @ 100 mls/hr Q1H IV Last administered on 06/22/17 15:42; Start 06/22/17 at 14:00; Stop 06/22/17 at 15:59; Status DC Saliva Substitute (Biotene Moisturizing Mouth) 2 spray PRN Q15MIN PRN PO DRY MOUTH; Start 06/22/17 at 14:00 Acetaminophen (Tylenol) 650 mg PRN Q6HRS PRN PO FEVER; Start 06/23/17 at 09:45 Ondansetron HCl (Zofran) 4 mg PRN Q6HRS PRN IV NAUSEA/VOMITING; Start 06/23/17 at 09:45 Morphine Sulfate 2 mg PRN Q2HR PRN IV PAIN; Start 06/23/17 at 09:45 Tramadol HCl (Ultram) 50 mg PRN Q6HRS PRN PO PAIN; Start 06/23/17 at 09:45 Hydralazine HCl (Apresoline) 10 mg PRN Q4HRS PRN IVP ELEVATED BP, SEE COMMENTS ; Start 06/23/17 at 09:45 Docusate Sodium (Colace) 100 mg PRN DAILY PRN PO CONSTIPATION; Start 06/23/17 at 09:45 Vitals/I & O Vital Sign - Last 24 Hours 06/22/17 06/22/17 06/22/17 06/22/17 13:53 15:15 17:41 18:29 Temp 97.9 97.9 Pulse 80 Resp 20 B/P (MAP) 121/67 (85) Pulse Ox 96 O2 Delivery Room Air Room Air Room Air Room Air 06/22/17 06/22/17 06/22/17 06/22/17 18:40 19:55 20:00 23:13 Temp 97.9 97.5 97.9 97.5 Pulse 80 74 Resp 18 B/P (MAP) 121/67 (85) 101/48 (65) Pulse Ox 96 97 O2 Delivery Room Air Room Air Room Air 06/22/17 06/22/17 06/23/17 06/23/17 23:20 23:43 03:20 05:40 Temp 97.7 97.5 97.7 97.5 Pulse 61 73 Resp 18 18 B/P (MAP) 125/57 (79) 156/73 (100) Pulse Ox 98 98 O2 Delivery Room Air Room Air Room Air Room Air 06/23/17 07:00 Temp 98.5 98.5 Pulse 73 Resp 18 B/P (MAP) 125/69 (87) Pulse Ox 97 O2 Delivery Room Air MOIRA QUINTEROS MD Jun 23, 2017 13:04
[2017-06-23 15:00] VITALS: BP 123/79
[2017-06-23] MEDS: fentaNYL PF VIAL 100 MCG/2 ML VIAL IV PRN (16:18)
[2017-06-23 19:46] VITALS: BP 152/90
[2017-06-23] MEDS: traMADol 50 MG TABLET PO PRN (20:59)
[2017-06-23] MEDS ORDERED: FAMOTIDINE 20 MG/2 ML VIAL IVP SCH (21:00)
[2017-06-23 22:40] VITALS: BP 134/72
[2017-06-24] VITALS (7 sets, daily range): BP systolic 128–162; BP diastolic 70–100
[2017-06-24] MEDS: fentaNYL PF VIAL 100 MCG/2 ML VIAL IV PRN ×2 (02:02→05:24)
[2017-06-24 04:23] LABS: BASO # 0.1 x10^3/uL (0.0-0.2); BASO % 1 % (0-3); EOS % 2 % (0-3); HEMOGLOBIN 11.9 g/dL (12.0-15.5); LYMPH # 2.5 x10^3/uL (1.0-4.8); LYMPH % 37 % (24-48); MEAN CORPUSCULAR HEMOGLOBIN 29 pg (25-35); MEAN CORPUSCULAR HGB CONC 33 g/dL (31-37); MEAN CORPUSCULAR VOLUME 88 fL (79-100); MONO % 7 % (0-9); NEUT % 54 % (31-73); PLATELET COUNT 200 x10^3/uL (140-400); RED BLOOD COUNT 4.11 x10^6/uL (3.50-5.40); RED CELL DISTRIBUTION WIDTH 13.1 % (11.5-14.5); WHITE BLOOD COUNT 6.9 x10^3/uL (4.0-11.0)
[2017-06-24 04:38] LABS: CALCIUM 8.1 mg/dL (8.5-10.1); CREATININE 0.7 mg/dL (0.6-1.0); GFR 120.6; POTASSIUM 3.4 mmol/L (3.5-5.1)
[2017-06-24] MEDS: IV NORMAL SALINE 1000ML BAG 1,000 ML IV SCH ×3 (05:24→18:47)
[2017-06-24 05:44] LABS: ALBUMIN 2.8 g/dL (3.4-5.0); DIRECT BILIRUBIN 0.6 mg/dL (0.0-0.2); TOTAL BILIRUBIN 1.1 mg/dL (0.2-1.0); TOTAL PROTEIN 6.7 g/dL (6.4-8.2)
[2017-06-24] MEDS ORDERED: POTASSIUM CHLORIDE 20 MEQ TABLET.ER. PO ONE (10:00)
--- NOTE | 2017-06-24 10:25 | PDOC ---
SURGICAL PROGRESS NOTE Subjective Feeling better today, less pain. Vital Signs Vital Signs Date Time Temp Pulse Resp B/P (MAP) Pulse Ox O2 Delivery O2 Flow Rate FiO2 06/24/17 07:00 98.7 65 18 146/87 (106) 99 Room Air 98.7 PATIENT HAS A HUBBARD: No General: Alert, Oriented X3, Cooperative, No acute distress Abdomen: Normal bowel sounds, Soft, Other (mildly TTP RUQ) Labs Laboratory Tests Test 06/22/17 10:25 06/23/17 05:50 06/24/17 03:20 06/24/17 03:50 White Blood Count 7.2 x10^3/uL (4.0-11.0) 8.0 x10^3/uL (4.0-11.0) 6.9 x10^3/uL (4.0-11.0) Red Blood Count 4.45 x10^6/uL (3.50-5.40) 4.50 x10^6/uL (3.50-5.40) 4.11 x10^6/uL (3.50-5.40) Hemoglobin 12.9 g/dL (12.0-15.5) 13.0 g/dL (12.0-15.5) 11.9 g/dL (12.0-15.5) Hematocrit 38.2 % (36.0-47.0) 39.0 % (36.0-47.0) 36.0 % (36.0-47.0) Mean Corpuscular Volume 86 fL (79-100) 87 fL (79-100) 88 fL (79-100) Mean Corpuscular Hemoglobin 29 pg (25-35) 29 pg (25-35) 29 pg (25-35) Mean Corpuscular Hemoglobin Concent 34 g/dL (31-37) 33 g/dL (31-37) 33 g/dL (31-37) Red Cell Distribution Width 13.7 % (11.5-14.5) 13.3 % (11.5-14.5) 13.1 % (11.5-14.5) Platelet Count 196 x10^3/uL (140-400) 224 x10^3/uL (140-400) 200 x10^3/uL (140-400) Neutrophils (%) (Auto) 70 % (31-73) 71 % (31-73) 54 % (31-73) Lymphocytes (%) (Auto) 22 % (24-48) 20 % (24-48) 37 % (24-48) Monocytes (%) (Auto) 7 % (0-9) 7 % (0-9) 7 % (0-9) Eosinophils (%) (Auto) 1 % (0-3) 1 % (0-3) 2 % (0-3) Basophils (%) (Auto) 1 % (0-3) 1 % (0-3) 1 % (0-3) Neutrophils # (Auto) 5.0 x10^3uL (1.8-7.7) 5.7 x10^3uL (1.8-7.7) 3.7 x10^3uL (1.8-7.7) Lymphocytes # (Auto) 1.6 x10^3/uL (1.0-4.8) 1.6 x10^3/uL (1.0-4.8) 2.5 x10^3/uL (1.0-4.8) Monocytes # (Auto) 0.5 x10^3/uL (0.0-1.1) 0.6 x10^3/uL (0.0-1.1) 0.5 x10^3/uL (0.0-1.1) Eosinophils # (Auto) 0.1 x10^3/uL (0.0-0.7) 0.1 x10^3/uL (0.0-0.7) 0.1 x10^3/uL (0.0-0.7) Basophils # (Auto) 0.1 x10^3/uL (0.0-0.2) 0.1 x10^3/uL (0.0-0.2) 0.1 x10^3/uL (0.0-0.2) Sodium Level 140 mmol/L (136-145) 138 mmol/L (136-145) Potassium Level 3.6 mmol/L (3.5-5.1) 3.4 mmol/L (3.5-5.1) Chloride Level 106 mmol/L (98-107) 105 mmol/L (98-107) Carbon Dioxide Level 23 mmol/L (21-32) 26 mmol/L (21-32) Anion Gap 11 (6-14) 7 (6-14) Blood Urea Nitrogen 10 mg/dL (7-20) 6 mg/dL (7-20) Creatinine 0.8 mg/dL (0.6-1.0) 0.7 mg/dL (0.6-1.0) Estimated GFR (Cockcroft-Gault) 103.3 120.6 BUN/Creatinine Ratio 13 (6-20) Glucose Level 67 mg/dL (70-99) 77 mg/dL (70-99) Calcium Level 8.5 mg/dL (8.5-10.1) 8.1 mg/dL (8.5-10.1) Total Bilirubin 1.7 mg/dL (0.2-1.0) 1.1 mg/dL (0.2-1.0) Aspartate Amino Transf (AST/SGOT) 61 U/L (15-37) 33 U/L (15-37) Alanine Aminotransferase (ALT/SGPT) 180 U/L (14-59) 117 U/L (14-59) Alkaline Phosphatase 230 U/L (46-116) 178 U/L (46-116) Total Protein 7.5 g/dL (6.4-8.2) 6.7 g/dL (6.4-8.2) Albumin 3.0 g/dL (3.4-5.0) 2.8 g/dL (3.4-5.0) Albumin/Globulin Ratio 0.7 (1.0-1.7) Lipase 582 U/L (73-393) 275 U/L (73-393) Direct Bilirubin 0.6 mg/dL (0.0-0.2) Laboratory Tests Test 06/24/17 03:20 06/24/17 03:50 White Blood Count 6.9 x10^3/uL (4.0-11.0) Red Blood Count 4.11 x10^6/uL (3.50-5.40) Hemoglobin 11.9 g/dL (12.0-15.5) Hematocrit 36.0 % (36.0-47.0) Mean Corpuscular Volume 88 fL (79-100) Mean Corpuscular Hemoglobin 29 pg (25-35) Mean Corpuscular Hemoglobin Concent 33 g/dL (31-37) Red Cell Distribution Width 13.1 % (11.5-14.5) Platelet Count 200 x10^3/uL (140-400) Neutrophils (%) (Auto) 54 % (31-73) Lymphocytes (%) (Auto) 37 % (24-48) Monocytes (%) (Auto) 7 % (0-9) Eosinophils (%) (Auto) 2 % (0-3) Basophils (%) (Auto) 1 % (0-3) Neutrophils # (Auto) 3.7 x10^3uL (1.8-7.7) Lymphocytes # (Auto) 2.5 x10^3/uL (1.0-4.8) Monocytes # (Auto) 0.5 x10^3/uL (0.0-1.1) Eosinophils # (Auto) 0.1 x10^3/uL (0.0-0.7) Basophils # (Auto) 0.1 x10^3/uL (0.0-0.2) Sodium Level 138 mmol/L (136-145) Potassium Level 3.4 mmol/L (3.5-5.1) Chloride Level 105 mmol/L (98-107) Carbon Dioxide Level 26 mmol/L (21-32) Anion Gap 7 (6-14) Blood Urea Nitrogen 6 mg/dL (7-20) Creatinine 0.7 mg/dL (0.6-1.0) Estimated GFR (Cockcroft-Gault) 120.6 Glucose Level 77 mg/dL (70-99) Calcium Level 8.1 mg/dL (8.5-10.1) Total Bilirubin 1.1 mg/dL (0.2-1.0) Direct Bilirubin 0.6 mg/dL (0.0-0.2) Aspartate Amino Transf (AST/SGOT) 33 U/L (15-37) Alanine Aminotransferase (ALT/SGPT) 117 U/L (14-59) Alkaline Phosphatase 178 U/L (46-116) Total Protein 6.7 g/dL (6.4-8.2) Albumin 2.8 g/dL (3.4-5.0) Lipase 275 U/L (73-393) Problem List Problems Medical Problems: (1) Abdominal pain Status: Acute (2) Cholelithiasis Status: Acute (3) Pancreatitis Status: Acute Assessment/Plan Gallstone pancreatitis, improving Plan L/S Cristin with IOC in AM Problems: APOORVA BUORNE MD Jun 24, 2017 10:25
[2017-06-24] MEDS: traMADol 50 MG TABLET PO PRN ×2 (10:53→19:56)
--- NOTE | 2017-06-24 11:14 | PDOC ---
PROGRESS NOTES Chief Complaint Chief Complaint abd pain with cholelithiasis mild elevated lipase with ? mild pancreatitis elevated transaminitis morbid obesity, BMI 56 Hx Lupus, but pt chose not taking meds at this time point mild low albumin, 2/2 liver dz, no malnutrition HYPOKALEMIA plan: fu with gi, sx plan to do lap allen on wednesday clear liquid diet advance to full liquid and then NPO MN lipase, LFT daily decrease ivf to 100cc/h gi, dvt ppx replete K History of Present Illness History of Present Illness ROS: no fever, chills, sob or chest pain slightly better abd pain, 4/10, epigastric no N/V, has gas, bm yesterday lipase normal , LFT better Vitals Vitals Vital Signs Date Time Temp Pulse Resp B/P (MAP) Pulse Ox O2 Delivery O2 Flow Rate FiO2 06/24/17 07:00 98.7 65 18 146/87 (106) 99 Room Air 98.7 Physical Exam General: Alert, Oriented X3, Cooperative, No acute distress Heart: Regular rate, Normal S1, Normal S2, No murmurs Lungs: Clear Abdomen: Normal bowel sounds, Soft, Other (mildly TTP RUQ) Extremities: No cyanosis, No edema, Normal pulses Skin: No rashes, No significant lesion Labs LABS Laboratory Tests Test 06/24/17 03:20 06/24/17 03:50 White Blood Count 6.9 x10^3/uL (4.0-11.0) Red Blood Count 4.11 x10^6/uL (3.50-5.40) Hemoglobin 11.9 g/dL (12.0-15.5) Hematocrit 36.0 % (36.0-47.0) Mean Corpuscular Volume 88 fL (79-100) Mean Corpuscular Hemoglobin 29 pg (25-35) Mean Corpuscular Hemoglobin Concent 33 g/dL (31-37) Red Cell Distribution Width 13.1 % (11.5-14.5) Platelet Count 200 x10^3/uL (140-400) Neutrophils (%) (Auto) 54 % (31-73) Lymphocytes (%) (Auto) 37 % (24-48) Monocytes (%) (Auto) 7 % (0-9) Eosinophils (%) (Auto) 2 % (0-3) Basophils (%) (Auto) 1 % (0-3) Neutrophils # (Auto) 3.7 x10^3uL (1.8-7.7) Lymphocytes # (Auto) 2.5 x10^3/uL (1.0-4.8) Monocytes # (Auto) 0.5 x10^3/uL (0.0-1.1) Eosinophils # (Auto) 0.1 x10^3/uL (0.0-0.7) Basophils # (Auto) 0.1 x10^3/uL (0.0-0.2) Sodium Level 138 mmol/L (136-145) Potassium Level 3.4 mmol/L (3.5-5.1) Chloride Level 105 mmol/L (98-107) Carbon Dioxide Level 26 mmol/L (21-32) Anion Gap 7 (6-14) Blood Urea Nitrogen 6 mg/dL (7-20) Creatinine 0.7 mg/dL (0.6-1.0) Estimated GFR (Cockcroft-Gault) 120.6 Glucose Level 77 mg/dL (70-99) Calcium Level 8.1 mg/dL (8.5-10.1) Total Bilirubin 1.1 mg/dL (0.2-1.0) Direct Bilirubin 0.6 mg/dL (0.0-0.2) Aspartate Amino Transf (AST/SGOT) 33 U/L (15-37) Alanine Aminotransferase (ALT/SGPT) 117 U/L (14-59) Alkaline Phosphatase 178 U/L (46-116) Total Protein 6.7 g/dL (6.4-8.2) Albumin 2.8 g/dL (3.4-5.0) Lipase 275 U/L (73-393) Assessment and Plan Assessmemt and Plan Problems Medical Problems: (1) Abdominal pain Status: Acute (2) Cholelithiasis Status: Acute (3) Pancreatitis Status: Acute Problems: Comment Review of Relevant I have reviewed the following items gulshan (where applicable) has been applied. Labs Laboratory Tests Test 06/23/17 05:50 06/24/17 03:20 06/24/17 03:50 White Blood Count 8.0 x10^3/uL (4.0-11.0) 6.9 x10^3/uL (4.0-11.0) Red Blood Count 4.50 x10^6/uL (3.50-5.40) 4.11 x10^6/uL (3.50-5.40) Hemoglobin 13.0 g/dL (12.0-15.5) 11.9 g/dL (12.0-15.5) Hematocrit 39.0 % (36.0-47.0) 36.0 % (36.0-47.0) Mean Corpuscular Volume 87 fL (79-100) 88 fL (79-100) Mean Corpuscular Hemoglobin 29 pg (25-35) 29 pg (25-35) Mean Corpuscular Hemoglobin Concent 33 g/dL (31-37) 33 g/dL (31-37) Red Cell Distribution Width 13.3 % (11.5-14.5) 13.1 % (11.5-14.5) Platelet Count 224 x10^3/uL (140-400) 200 x10^3/uL (140-400) Neutrophils (%) (Auto) 71 % (31-73) 54 % (31-73) Lymphocytes (%) (Auto) 20 % (24-48) 37 % (24-48) Monocytes (%) (Auto) 7 % (0-9) 7 % (0-9) Eosinophils (%) (Auto) 1 % (0-3) 2 % (0-3) Basophils (%) (Auto) 1 % (0-3) 1 % (0-3) Neutrophils # (Auto) 5.7 x10^3uL (1.8-7.7) 3.7 x10^3uL (1.8-7.7) Lymphocytes # (Auto) 1.6 x10^3/uL (1.0-4.8) 2.5 x10^3/uL (1.0-4.8) Monocytes # (Auto) 0.6 x10^3/uL (0.0-1.1) 0.5 x10^3/uL (0.0-1.1) Eosinophils # (Auto) 0.1 x10^3/uL (0.0-0.7) 0.1 x10^3/uL (0.0-0.7) Basophils # (Auto) 0.1 x10^3/uL (0.0-0.2) 0.1 x10^3/uL (0.0-0.2) Sodium Level 140 mmol/L (136-145) 138 mmol/L (136-145) Potassium Level 3.6 mmol/L (3.5-5.1) 3.4 mmol/L (3.5-5.1) Chloride Level 106 mmol/L (98-107) 105 mmol/L (98-107) Carbon Dioxide Level 23 mmol/L (21-32) 26 mmol/L (21-32) Anion Gap 11 (6-14) 7 (6-14) Blood Urea Nitrogen 10 mg/dL (7-20) 6 mg/dL (7-20) Creatinine 0.8 mg/dL (0.6-1.0) 0.7 mg/dL (0.6-1.0) Estimated GFR (Cockcroft-Gault) 103.3 120.6 BUN/Creatinine Ratio 13 (6-20) Glucose Level 67 mg/dL (70-99) 77 mg/dL (70-99) Calcium Level 8.5 mg/dL (8.5-10.1) 8.1 mg/dL (8.5-10.1) Total Bilirubin 1.7 mg/dL (0.2-1.0) 1.1 mg/dL (0.2-1.0) Aspartate Amino Transf (AST/SGOT) 61 U/L (15-37) 33 U/L (15-37) Alanine Aminotransferase (ALT/SGPT) 180 U/L (14-59) 117 U/L (14-59) Alkaline Phosphatase 230 U/L (46-116) 178 U/L (46-116) Total Protein 7.5 g/dL (6.4-8.2) 6.7 g/dL (6.4-8.2) Albumin 3.0 g/dL (3.4-5.0) 2.8 g/dL (3.4-5.0) Albumin/Globulin Ratio 0.7 (1.0-1.7) Lipase 582 U/L (73-393) 275 U/L (73-393) Direct Bilirubin 0.6 mg/dL (0.0-0.2) Laboratory Tests Test 06/24/17 03:20 06/24/17 03:50 White Blood Count 6.9 x10^3/uL (4.0-11.0) Red Blood Count 4.11 x10^6/uL (3.50-5.40) Hemoglobin 11.9 g/dL (12.0-15.5) Hematocrit 36.0 % (36.0-47.0) Mean Corpuscular Volume 88 fL (79-100) Mean Corpuscular Hemoglobin 29 pg (25-35) Mean Corpuscular Hemoglobin Concent 33 g/dL (31-37) Red Cell Distribution Width 13.1 % (11.5-14.5) Platelet Count 200 x10^3/uL (140-400) Neutrophils (%) (Auto) 54 % (31-73) Lymphocytes (%) (Auto) 37 % (24-48) Monocytes (%) (Auto) 7 % (0-9) Eosinophils (%) (Auto) 2 % (0-3) Basophils (%) (Auto) 1 % (0-3) Neutrophils # (Auto) 3.7 x10^3uL (1.8-7.7) Lymphocytes # (Auto) 2.5 x10^3/uL (1.0-4.8) Monocytes # (Auto) 0.5 x10^3/uL (0.0-1.1) Eosinophils # (Auto) 0.1 x10^3/uL (0.0-0.7) Basophils # (Auto) 0.1 x10^3/uL (0.0-0.2) Sodium Level 138 mmol/L (136-145) Potassium Level 3.4 mmol/L (3.5-5.1) Chloride Level 105 mmol/L (98-107) Carbon Dioxide Level 26 mmol/L (21-32) Anion Gap 7 (6-14) Blood Urea Nitrogen 6 mg/dL (7-20) Creatinine 0.7 mg/dL (0.6-1.0) Estimated GFR (Cockcroft-Gault) 120.6 Glucose Level 77 mg/dL (70-99) Calcium Level 8.1 mg/dL (8.5-10.1) Total Bilirubin 1.1 mg/dL (0.2-1.0) Direct Bilirubin 0.6 mg/dL (0.0-0.2) Aspartate Amino Transf (AST/SGOT) 33 U/L (15-37) Alanine Aminotransferase (ALT/SGPT) 117 U/L (14-59) Alkaline Phosphatase 178 U/L (46-116) Total Protein 6.7 g/dL (6.4-8.2) Albumin 2.8 g/dL (3.4-5.0) Lipase 275 U/L (73-393) Medications Current Medications Piperacillin Sod/ Tazobactam Sod 4.5 gm/Sodium Chloride 100 ml @ 200 mls/hr 1X ONCE IV Last administered on 06/22/17 10:45; Start 06/22/17 at 10:15; Stop 06/22/17 at 10:44; Status DC Hydromorphone HCl (Dilaudid) 0.5 mg 1X ONCE IV Last administered on 06/22/17 10:44; Start 06/22/17 at 10:15; Stop 06/22/17 at 10:16; Status DC Ondansetron HCl (Zofran) 4 mg 1X ONCE IV Last administered on 06/22/17 10:44 ; Start 06/22/17 at 10:15; Stop 06/22/17 at 10:16; Status DC Sodium Chloride 1,000 ml @ 1,000 mls/hr 1X ONCE IV Last administered on 10:40; Start 06/22/17 at 10:15; Stop 06/22/17 at 11:14; Status DC Ondansetron HCl (Zofran) 4 mg PRN Q8HRS PRN IV NAUSEA/VOMITING; Start 06/22/17 at 11:00; Stop 06/23/17 at 10:59; Status DC Morphine Sulfate 2 mg PRN Q2HR PRN IV PAIN; Start 06/22/17 at 11:00; Stop 06/22 at 13:42; Status DC Fentanyl Citrate (Fentanyl 2ml Vial) 75 mcg PRN Q2HRS PRN IV Severe pain Last administered on 06/24/17 05:24; Start 06/22/17 at 13:45 Sodium Chloride 1,000 ml @ 100 mls/hr Q10H IV Last administered on 06/24/17 05:24; Start 06/22/17 at 13:45 Morphine Sulfate 2 mg PRN Q2HR PRN IV PAIN Last administered on 06/23/17 05:40 ; Start 06/22/17 at 13:45 Potassium Chloride 100 ml @ 100 mls/hr Q1H IV Last administered on 06/22/17 15:42; Start 06/22/17 at 14:00; Stop 06/22/17 at 15:59; Status DC Saliva Substitute (Biotene Moisturizing Mouth) 2 spray PRN Q15MIN PRN PO DRY MOUTH; Start 06/22/17 at 14:00 Acetaminophen (Tylenol) 650 mg PRN Q6HRS PRN PO FEVER; Start 06/23/17 at 09:45 Ondansetron HCl (Zofran) 4 mg PRN Q6HRS PRN IV NAUSEA/VOMITING; Start 06/23/17 at 09:45 Morphine Sulfate 2 mg PRN Q2HR PRN IV PAIN; Start 06/23/17 at 09:45 Tramadol HCl (Ultram) 50 mg PRN Q6HRS PRN PO PAIN Last administered on 10:53; Start 06/23/17 at 09:45 Hydralazine HCl (Apresoline) 10 mg PRN Q4HRS PRN IVP ELEVATED BP, SEE COMMENTS ; Start 06/23/17 at 09:45 Docusate Sodium (Colace) 100 mg PRN DAILY PRN PO CONSTIPATION; Start 06/23/17 at 09:45 Enoxaparin Sodium (Lovenox 60mg Syringe) 60 mg Q12HR SQ ; Start 06/23/17 at 14: 00; Stop 06/24/17 at 18:00 Famotidine (Pepcid) 20 mg QHS IVP Last administered on 06/23/17 20:58; Start 06/23/17 at 21:00 Potassium Chloride (Klor-Con) 40 meq 1X ONCE PO Last administered on 10:48; Start 06/24/17 at 10:00; Stop 06/24/17 at 10:01; Status DC Vitals/I & O Vital Sign - Last 24 Hours 06/23/17 06/23/17 06/23/17 06/23/17 15:00 16:18 16:48 19:46 Temp 98.6 98.1 98.6 98.1 Pulse 72 80 Resp 18 18 18 18 B/P (MAP) 123/79 (94) 152/90 (110) Pulse Ox 96 96 95 100 O2 Delivery Room Air Room Air Room Air 06/23/17 06/23/17 06/23/17 06/23/17 20:00 20:59 21:59 22:40 Temp 98.1 98.1 Pulse 84 Resp 18 B/P (MAP) 134/72 (92) Pulse Ox 98 O2 Delivery Room Air Room Air Room Air Room Air 06/24/17 06/24/17 06/24/17 06/24/17 02:02 03:05 05:24 05:54 Temp 98.8 98.8 Pulse 67 Resp 18 B/P (MAP) 137/87 (104) Pulse Ox 99 O2 Delivery Room Air Room Air Room Air Room Air 06/24/17 07:00 Temp 98.7 98.7 Pulse 65 Resp 18 B/P (MAP) 146/87 (106) Pulse Ox 99 O2 Delivery Room Air MOIRA QUINTEROS MD Jun 24, 2017 11:14
--- NOTE | 2017-06-24 11:26 | PDOC ---
Subjective: Subjective: Feels better today. Objective: Vital Signs: Vital Signs Date Time Temp Pulse Resp B/P (MAP) Pulse Ox O2 Delivery O2 Flow Rate FiO2 06/24/17 07:00 98.7 65 18 146/87 (106) 99 Room Air 98.7 Labs: Laboratory Tests Test 06/24/17 03:20 06/24/17 03:50 White Blood Count 6.9 x10^3/uL Red Blood Count 4.11 x10^6/uL Hemoglobin 11.9 g/dL Hematocrit 36.0 % Mean Corpuscular Volume 88 fL Mean Corpuscular Hemoglobin 29 pg Mean Corpuscular Hemoglobin Concent 33 g/dL Red Cell Distribution Width 13.1 % Platelet Count 200 x10^3/uL Neutrophils (%) (Auto) 54 % Lymphocytes (%) (Auto) 37 % Monocytes (%) (Auto) 7 % Eosinophils (%) (Auto) 2 % Basophils (%) (Auto) 1 % Neutrophils # (Auto) 3.7 x10^3uL Lymphocytes # (Auto) 2.5 x10^3/uL Monocytes # (Auto) 0.5 x10^3/uL Eosinophils # (Auto) 0.1 x10^3/uL Basophils # (Auto) 0.1 x10^3/uL Sodium Level 138 mmol/L Potassium Level 3.4 mmol/L Chloride Level 105 mmol/L Carbon Dioxide Level 26 mmol/L Anion Gap 7 Blood Urea Nitrogen 6 mg/dL Creatinine 0.7 mg/dL Estimated GFR (Cockcroft-Gault) 120.6 Glucose Level 77 mg/dL Calcium Level 8.1 mg/dL Total Bilirubin 1.1 mg/dL Direct Bilirubin 0.6 mg/dL Aspartate Amino Transf (AST/SGOT) 33 U/L Alanine Aminotransferase (ALT/SGPT) 117 U/L Alkaline Phosphatase 178 U/L Total Protein 6.7 g/dL Albumin 2.8 g/dL Lipase 275 U/L PE: GEN: NAD LUNGS: CTAB HEART: RRR ABD: S/NT, obese NEURO/PSYCH: A & O 3 A/P: Cholelithiasis, prominent CBD Upper abd pain Elevated LFTs (improving), lipase (resolved) -- Plans for allen w/ IOC tomorrow, await findings. NEIL BARRIOS Jun 24, 2017 11:26
[2017-06-24] MEDS: FAMOTIDINE 20 MG TABLET. PO SCH (19:52)
[2017-06-25 03:00] VITALS: BP 119/69
[2017-06-25] MEDS: IV NORMAL SALINE 1000ML BAG 1,000 ML IV SCH ×2 (04:13→18:53)
[2017-06-25 04:37] LABS: BASO # 0.1 x10^3/uL (0.0-0.2); BASO % 1 % (0-3); EOS % 3 % (0-3); HEMATOCRIT 37.2 % (36.0-47.0); HEMOGLOBIN 12.7 g/dL (12.0-15.5); LYMPH # 2.9 x10^3/uL (1.0-4.8); LYMPH % 42 % (24-48); MEAN CORPUSCULAR HEMOGLOBIN 29 pg (25-35); MEAN CORPUSCULAR HGB CONC 34 g/dL (31-37); MEAN CORPUSCULAR VOLUME 86 fL (79-100); MONO % 7 % (0-9); NEUT % 48 % (31-73); PLATELET COUNT 222 x10^3/uL (140-400); RED BLOOD COUNT 4.33 x10^6/uL (3.50-5.40); RED CELL DISTRIBUTION WIDTH 13.6 % (11.5-14.5)
[2017-06-25 04:53] LABS: DIRECT BILIRUBIN 0.5 mg/dL (0.0-0.2); TOTAL BILIRUBIN 0.9 mg/dL (0.2-1.0); TOTAL PROTEIN 7.3 g/dL (6.4-8.2)
[2017-06-25 04:57] LABS: CALCIUM 8.6 mg/dL (8.5-10.1); CREATININE 0.8 mg/dL (0.6-1.0); GFR 103.3
[2017-06-25] MEDS ORDERED: PROCHLORPERAZINE 10 MG/2 ML VIAL. IV PRN (07:00)
[2017-06-25] MEDS ORDERED: ONDANSETRON PF 4 MG/2 ML VIAL. IV PRN (07:00)
[2017-06-25] MEDS ORDERED: IV RINGERS,LACTATED 1000ML 1,000 ML IV SCH (07:00)
[2017-06-25] MEDS ORDERED: HYDROmorphone 2 MG/ML VIAL IV PRN (07:00)
[2017-06-25] MEDS ORDERED: fentaNYL PF VIAL 100 MCG/2 ML VIAL IV PRN (07:00)
[2017-06-25] MEDS ORDERED: LIDOCAINE 1% PF 2 ML VIAL. ID PRN (07:00)
[2017-06-25] MEDS ORDERED: SURGICEL HEMOSTAT 4X8 EACH. ONE (07:15)
[2017-06-25] MEDS ORDERED: IOHEXOL 300 MG/ML 50 ML VIAL. ONE (07:16)
[2017-06-25] MEDS ORDERED: BUPIVACAINE-EPI 0.5%-1:200000 50 ML VIAL. ONE (07:16)
[2017-06-25] MEDS ORDERED: BUPIVACAINE-EPI 0.25%-1:200000 MPF 30 ML VIAL. INJ ONE (07:30)
[2017-06-25] MEDS ORDERED: fentaNYL PF VIAL 100 MCG/2 ML VIAL ONE ×4 (07:48→09:06)
[2017-06-25] MEDS ORDERED: MIDAZOLAM HCL/PF 2 MG/2 ML VIAL. ONE (07:56)
[2017-06-25] MEDS ORDERED: DEXAMETHASONE SOD PHOS 20 MG/5 ML VIAL. ONE (08:12)
[2017-06-25] MEDS ORDERED: PROPOFOL 40 ML IV ONE (08:12)
[2017-06-25] MEDS ORDERED: ONDANSETRON PF 4 MG/2 ML VIAL. ONE (08:12)
[2017-06-25] MEDS ORDERED: NEOSTIGMINE METHYLSULFATE 5 MG/5 ML SYRINGE. ONE (08:13)
[2017-06-25] MEDS ORDERED: GLYCOPYRROLATE 1 MG/5 ML VIAL. ONE (08:13)
--- NOTE | 2017-06-25 08:20 | RAD ---
Indication protocol study. Assess for anomalous anatomy. Assess for potential complication or choledocholithiasis. For members of the Department of surgery fluoroscopy was provided. 2 films were obtained with the C-arm. Fluoroscopy time associated with the imaging was 24 seconds. No definite abnormality is seen. No filling defect to suggest choledocholithiasis is seen. Contrast flows unremarkably into the duodenum. IMPRESSION:: Normal operative cholangiogram
[2017-06-25] MEDS ORDERED: KETOROLAC 60 MG/2 ML INJ FOR OR. ONE (08:22)
--- NOTE | 2017-06-25 08:47 | PDOC4 ---
Operative Note Operative Note Date: 06/25/2017 Preoperative diagnosis: Cholecystitis cholelithiasis Postoperative diagnosis: Same Procedure: Laparoscopic cholecystectomy with intraoperative cholangiogram Surgeon: Ceasar Specimen: Gallbladder Dictation: Patient is a 26-year-old female was admitted to the hospital with right upper quadrant abdominal pain nausea and elevated liver enzymes consistent with acute cholecystitis and gallstone pancreatitis. The procedure of laparoscopic cholecystectomy with intraoperative cholangiograms was explained to the patient detail risks benefits were also discussed including bleeding infection injury to intra-abdominal contents possibly necessitating further or open operations. The patient seemed to understanding gave both verbal and written consent to have the procedure performed. Patient was taken to the operating room placed in the supine position general anesthesia was initiated once patient was asleep and intubated her abdomen was prepped and draped in the usual sterile fashion using ChloraPrep. An area in the left upper quadrant was injected with quarter percent Marcaine with epinephrine and incision made 11 blade scalpel and using a long 5 mm Visiport was placed under direct visualization into the abdomen and a pneumoperitoneum was achieved. A 12 mm port was placed under direct visualization from the umbilicus and at this time 3 more ports were placed one in the epigastrium 2 in the right upper quadrant under direct visualization. The gallbladder was grasped retracted cephalad the infundibulum gallbladder was grasped retracted laterally there were a few adhesions to the gallbladder and omentum and these were taken down with blunt dissection. The angle was dissected free of its adherent tissues exposing the cystic duct and cystic artery. This took duct was clipped on the gallbladder side and partially open with Endo Vanna scissors cholangiocatheter was placed to the anterior abdominal wall through 14-gauge Angiocath placed within the cystic duct clipped there and a cholangiogram was then shot. The cholangiogram showed good antegrade and retrograde flow of dye into the hepatic radicals as well as into the duodenum without evidence of obstruction or common bile duct stone. At this time the cholangiocatheter was removed the duct was doubly clipped and transected the cystic artery was doubly clipped and transected and the gallbladder was taken off the liver with hook left cautery placed in Endo Catch bag and removed from the umbilicus. The fascial defect at the umbilicus was closed with a suture passer and 0 Vicryl suture. All port sites were closed 4 subcuticular Monocryl Mastisol Steri-Strips and Band-Aids were applied as dressings. Patient was awakened and asked made in the operating room taken recovery in stable condition all sponge instrument and needle counts listed as correct. Blood loss 10 mL. APOORVA BOURNE MD Jun 25, 2017 08:47
[2017-06-25] MEDS ORDERED: PROCHLORPERAZINE 10 MG/2 ML VIAL. ONE (08:54)
[2017-06-25] MEDS: FAMOTIDINE 20 MG TABLET. PO SCH ×2 (09:00→21:41)
[2017-06-25] MEDS ORDERED: oxyCODONE/APAP 5/325 1 TAB TABLET PO PRN (09:00)
[2017-06-25] MEDS: fentaNYL PF VIAL 100 MCG/2 ML VIAL IV PRN ×4 (09:01→09:38)
[2017-06-25] MEDS ORDERED: MORPHINE SULFATE 2 MG/ML DISP.SYRIN. ONE (09:06)
[2017-06-25] MEDS: MORPHINE SULFATE 2 MG/ML DISP.SYRIN. IV PRN ×2 (09:16→09:30)
--- NOTE | 2017-06-25 09:38 | PDOC ---
Objective: Objective: Out for surgery. Vital Signs: Vital Signs Date Time Temp Pulse Resp B/P (MAP) Pulse Ox O2 Delivery O2 Flow Rate FiO2 06/25/17 09:30 14 96 Nasal Cannula 3.0 06/25/17 09:18 58 121/65 06/25/17 08:48 97.4 97.4 Labs: Laboratory Tests Test 06/25/17 03:51 White Blood Count 7.0 x10^3/uL Red Blood Count 4.33 x10^6/uL Hemoglobin 12.7 g/dL Hematocrit 37.2 % Mean Corpuscular Volume 86 fL Mean Corpuscular Hemoglobin 29 pg Mean Corpuscular Hemoglobin Concent 34 g/dL Red Cell Distribution Width 13.6 % Platelet Count 222 x10^3/uL Neutrophils (%) (Auto) 48 % Lymphocytes (%) (Auto) 42 % Monocytes (%) (Auto) 7 % Eosinophils (%) (Auto) 3 % Basophils (%) (Auto) 1 % Neutrophils # (Auto) 3.3 x10^3uL Lymphocytes # (Auto) 2.9 x10^3/uL Monocytes # (Auto) 0.5 x10^3/uL Eosinophils # (Auto) 0.2 x10^3/uL Basophils # (Auto) 0.1 x10^3/uL Sodium Level 140 mmol/L Potassium Level 4.0 mmol/L Chloride Level 105 mmol/L Carbon Dioxide Level 28 mmol/L Anion Gap 7 Blood Urea Nitrogen 4 mg/dL Creatinine 0.8 mg/dL Estimated GFR (Cockcroft-Gault) 103.3 Glucose Level 89 mg/dL Calcium Level 8.6 mg/dL Total Bilirubin 0.9 mg/dL Direct Bilirubin 0.5 mg/dL Aspartate Amino Transf (AST/SGOT) 29 U/L Alanine Aminotransferase (ALT/SGPT) 97 U/L Alkaline Phosphatase 173 U/L Total Protein 7.3 g/dL Albumin 3.0 g/dL Lipase 258 U/L Imaging: IOC 06/25/17 IMPRESSION:: Normal operative cholangiogram. PE: no exam A/P: Cholelithiasis, prominent CBD Elevated LFTs (improving), lipase (resolved) -- S/p cholecystectomy this a.m. IOC as above, normal. NEIL BARRIOS Jun 25, 2017 09:38
[2017-06-25 09:54] VITALS: BP 116/63
[2017-06-25] MEDS: MORPHINE SULFATE 4 MG/ML DISP.SYRIN. IV PRN (10:09)
[2017-06-25 11:00] VITALS: BP 124/74
--- NOTE | 2017-06-25 11:52 | PDOC ---
PROGRESS NOTES Chief Complaint Chief Complaint abd pain with cholelithiasis mild elevated lipase with ? mild pancreatitis elevated transaminitis morbid obesity, BMI 56 Hx Lupus, but pt chose not taking meds at this time point mild low albumin, 2/2 liver dz, no malnutrition HYPOKALEMIA plan: fu with gi, sx lap allen today advance diet as per GI lipase, LFT daily decrease ivf to 100cc/h gi, dvt ppx replete K dc tmr History of Present Illness History of Present Illness ROS: no fever, chills, sob or chest pain slightly better abd pain, 4/10, epigastric no N/V, has gas, bm lipase normal , LFT better lap allen today Vitals Vitals Vital Signs Date Time Temp Pulse Resp B/P (MAP) Pulse Ox O2 Delivery O2 Flow Rate FiO2 06/25/17 11:00 97.8 67 18 124/74 (91) 98 Nasal Cannula 3.0 97.8 Physical Exam General: Alert, Oriented X3, Cooperative, No acute distress Heart: Regular rate, Normal S1, Normal S2, No murmurs Lungs: Clear Abdomen: Normal bowel sounds, Soft, Other (mildly TTP RUQ) Extremities: No cyanosis, No edema, Normal pulses Skin: No rashes, No significant lesion Labs LABS Laboratory Tests Test 06/25/17 03:51 White Blood Count 7.0 x10^3/uL (4.0-11.0) Red Blood Count 4.33 x10^6/uL (3.50-5.40) Hemoglobin 12.7 g/dL (12.0-15.5) Hematocrit 37.2 % (36.0-47.0) Mean Corpuscular Volume 86 fL (79-100) Mean Corpuscular Hemoglobin 29 pg (25-35) Mean Corpuscular Hemoglobin Concent 34 g/dL (31-37) Red Cell Distribution Width 13.6 % (11.5-14.5) Platelet Count 222 x10^3/uL (140-400) Neutrophils (%) (Auto) 48 % (31-73) Lymphocytes (%) (Auto) 42 % (24-48) Monocytes (%) (Auto) 7 % (0-9) Eosinophils (%) (Auto) 3 % (0-3) Basophils (%) (Auto) 1 % (0-3) Neutrophils # (Auto) 3.3 x10^3uL (1.8-7.7) Lymphocytes # (Auto) 2.9 x10^3/uL (1.0-4.8) Monocytes # (Auto) 0.5 x10^3/uL (0.0-1.1) Eosinophils # (Auto) 0.2 x10^3/uL (0.0-0.7) Basophils # (Auto) 0.1 x10^3/uL (0.0-0.2) Sodium Level 140 mmol/L (136-145) Potassium Level 4.0 mmol/L (3.5-5.1) Chloride Level 105 mmol/L (98-107) Carbon Dioxide Level 28 mmol/L (21-32) Anion Gap 7 (6-14) Blood Urea Nitrogen 4 mg/dL (7-20) Creatinine 0.8 mg/dL (0.6-1.0) Estimated GFR (Cockcroft-Gault) 103.3 Glucose Level 89 mg/dL (70-99) Calcium Level 8.6 mg/dL (8.5-10.1) Total Bilirubin 0.9 mg/dL (0.2-1.0) Direct Bilirubin 0.5 mg/dL (0.0-0.2) Aspartate Amino Transf (AST/SGOT) 29 U/L (15-37) Alanine Aminotransferase (ALT/SGPT) 97 U/L (14-59) Alkaline Phosphatase 173 U/L (46-116) Total Protein 7.3 g/dL (6.4-8.2) Albumin 3.0 g/dL (3.4-5.0) Lipase 258 U/L (73-393) Assessment and Plan Assessmemt and Plan Problems Medical Problems: (1) Abdominal pain Status: Acute (2) Cholelithiasis Status: Acute (3) Pancreatitis Status: Acute Problems: Comment Review of Relevant I have reviewed the following items gulshan (where applicable) has been applied. Labs Laboratory Tests Test 06/24/17 03:20 06/24/17 03:50 06/25/17 03:51 White Blood Count 6.9 x10^3/uL (4.0-11.0) 7.0 x10^3/uL (4.0-11.0) Red Blood Count 4.11 x10^6/uL (3.50-5.40) 4.33 x10^6/uL (3.50-5.40) Hemoglobin 11.9 g/dL (12.0-15.5) 12.7 g/dL (12.0-15.5) Hematocrit 36.0 % (36.0-47.0) 37.2 % (36.0-47.0) Mean Corpuscular Volume 88 fL (79-100) 86 fL (79-100) Mean Corpuscular Hemoglobin 29 pg (25-35) 29 pg (25-35) Mean Corpuscular Hemoglobin Concent 33 g/dL (31-37) 34 g/dL (31-37) Red Cell Distribution Width 13.1 % (11.5-14.5) 13.6 % (11.5-14.5) Platelet Count 200 x10^3/uL (140-400) 222 x10^3/uL (140-400) Neutrophils (%) (Auto) 54 % (31-73) 48 % (31-73) Lymphocytes (%) (Auto) 37 % (24-48) 42 % (24-48) Monocytes (%) (Auto) 7 % (0-9) 7 % (0-9) Eosinophils (%) (Auto) 2 % (0-3) 3 % (0-3) Basophils (%) (Auto) 1 % (0-3) 1 % (0-3) Neutrophils # (Auto) 3.7 x10^3uL (1.8-7.7) 3.3 x10^3uL (1.8-7.7) Lymphocytes # (Auto) 2.5 x10^3/uL (1.0-4.8) 2.9 x10^3/uL (1.0-4.8) Monocytes # (Auto) 0.5 x10^3/uL (0.0-1.1) 0.5 x10^3/uL (0.0-1.1) Eosinophils # (Auto) 0.1 x10^3/uL (0.0-0.7) 0.2 x10^3/uL (0.0-0.7) Basophils # (Auto) 0.1 x10^3/uL (0.0-0.2) 0.1 x10^3/uL (0.0-0.2) Sodium Level 138 mmol/L (136-145) 140 mmol/L (136-145) Potassium Level 3.4 mmol/L (3.5-5.1) 4.0 mmol/L (3.5-5.1) Chloride Level 105 mmol/L (98-107) 105 mmol/L (98-107) Carbon Dioxide Level 26 mmol/L (21-32) 28 mmol/L (21-32) Anion Gap 7 (6-14) 7 (6-14) Blood Urea Nitrogen 6 mg/dL (7-20) 4 mg/dL (7-20) Creatinine 0.7 mg/dL (0.6-1.0) 0.8 mg/dL (0.6-1.0) Estimated GFR (Cockcroft-Gault) 120.6 103.3 Glucose Level 77 mg/dL (70-99) 89 mg/dL (70-99) Calcium Level 8.1 mg/dL (8.5-10.1) 8.6 mg/dL (8.5-10.1) Total Bilirubin 1.1 mg/dL (0.2-1.0) 0.9 mg/dL (0.2-1.0) Direct Bilirubin 0.6 mg/dL (0.0-0.2) 0.5 mg/dL (0.0-0.2) Aspartate Amino Transf (AST/SGOT) 33 U/L (15-37) 29 U/L (15-37) Alanine Aminotransferase (ALT/SGPT) 117 U/L (14-59) 97 U/L (14-59) Alkaline Phosphatase 178 U/L (46-116) 173 U/L (46-116) Total Protein 6.7 g/dL (6.4-8.2) 7.3 g/dL (6.4-8.2) Albumin 2.8 g/dL (3.4-5.0) 3.0 g/dL (3.4-5.0) Lipase 275 U/L (73-393) 258 U/L (73-393) Laboratory Tests Test 06/25/17 03:51 White Blood Count 7.0 x10^3/uL (4.0-11.0) Red Blood Count 4.33 x10^6/uL (3.50-5.40) Hemoglobin 12.7 g/dL (12.0-15.5) Hematocrit 37.2 % (36.0-47.0) Mean Corpuscular Volume 86 fL (79-100) Mean Corpuscular Hemoglobin 29 pg (25-35) Mean Corpuscular Hemoglobin Concent 34 g/dL (31-37) Red Cell Distribution Width 13.6 % (11.5-14.5) Platelet Count 222 x10^3/uL (140-400) Neutrophils (%) (Auto) 48 % (31-73) Lymphocytes (%) (Auto) 42 % (24-48) Monocytes (%) (Auto) 7 % (0-9) Eosinophils (%) (Auto) 3 % (0-3) Basophils (%) (Auto) 1 % (0-3) Neutrophils # (Auto) 3.3 x10^3uL (1.8-7.7) Lymphocytes # (Auto) 2.9 x10^3/uL (1.0-4.8) Monocytes # (Auto) 0.5 x10^3/uL (0.0-1.1) Eosinophils # (Auto) 0.2 x10^3/uL (0.0-0.7) Basophils # (Auto) 0.1 x10^3/uL (0.0-0.2) Sodium Level 140 mmol/L (136-145) Potassium Level 4.0 mmol/L (3.5-5.1) Chloride Level 105 mmol/L (98-107) Carbon Dioxide Level 28 mmol/L (21-32) Anion Gap 7 (6-14) Blood Urea Nitrogen 4 mg/dL (7-20) Creatinine 0.8 mg/dL (0.6-1.0) Estimated GFR (Cockcroft-Gault) 103.3 Glucose Level 89 mg/dL (70-99) Calcium Level 8.6 mg/dL (8.5-10.1) Total Bilirubin 0.9 mg/dL (0.2-1.0) Direct Bilirubin 0.5 mg/dL (0.0-0.2) Aspartate Amino Transf (AST/SGOT) 29 U/L (15-37) Alanine Aminotransferase (ALT/SGPT) 97 U/L (14-59) Alkaline Phosphatase 173 U/L (46-116) Total Protein 7.3 g/dL (6.4-8.2) Albumin 3.0 g/dL (3.4-5.0) Lipase 258 U/L (73-393) Medications Current Medications Piperacillin Sod/ Tazobactam Sod 4.5 gm/Sodium Chloride 100 ml @ 200 mls/hr 1X ONCE IV Last administered on 06/22/17 10:45; Start 06/22/17 at 10:15; Stop 06/22/17 at 10:44; Status DC Hydromorphone HCl (Dilaudid) 0.5 mg 1X ONCE IV Last administered on 06/22/17 10:44; Start 06/22/17 at 10:15; Stop 06/22/17 at 10:16; Status DC Ondansetron HCl (Zofran) 4 mg 1X ONCE IV Last administered on 06/22/17 10:44 ; Start 06/22/17 at 10:15; Stop 06/22/17 at 10:16; Status DC Sodium Chloride 1,000 ml @ 1,000 mls/hr 1X ONCE IV Last administered on 10:40; Start 06/22/17 at 10:15; Stop 06/22/17 at 11:14; Status DC Ondansetron HCl (Zofran) 4 mg PRN Q8HRS PRN IV NAUSEA/VOMITING; Start 06/22/17 at 11:00; Stop 06/23/17 at 10:59; Status DC Morphine Sulfate 2 mg PRN Q2HR PRN IV PAIN; Start 06/22/17 at 11:00; Stop 06/22 at 13:42; Status DC Fentanyl Citrate (Fentanyl 2ml Vial) 75 mcg PRN Q2HRS PRN IV Severe pain Last administered on 06/24/17 05:24; Start 06/22/17 at 13:45 Sodium Chloride 1,000 ml @ 100 mls/hr Q10H IV Last administered on 06/24/17 05:24; Start 06/22/17 at 13:45 Morphine Sulfate 2 mg PRN Q2HR PRN IV PAIN Last administered on 06/25/17 10:09 ; Start 06/22/17 at 13:45 Potassium Chloride 100 ml @ 100 mls/hr Q1H IV Last administered on 06/22/17 15:42; Start 06/22/17 at 14:00; Stop 06/22/17 at 15:59; Status DC Saliva Substitute (Biotene Moisturizing Mouth) 2 spray PRN Q15MIN PRN PO DRY MOUTH; Start 06/22/17 at 14:00 Acetaminophen (Tylenol) 650 mg PRN Q6HRS PRN PO FEVER; Start 06/23/17 at 09:45 Ondansetron HCl (Zofran) 4 mg PRN Q6HRS PRN IV NAUSEA/VOMITING; Start 06/23/17 at 09:45 Morphine Sulfate 2 mg PRN Q2HR PRN IV PAIN; Start 06/23/17 at 09:45 Tramadol HCl (Ultram) 50 mg PRN Q6HRS PRN PO PAIN Last administered on 19:56; Start 06/23/17 at 09:45 Hydralazine HCl (Apresoline) 10 mg PRN Q4HRS PRN IVP ELEVATED BP, SEE COMMENTS ; Start 06/23/17 at 09:45 Docusate Sodium (Colace) 100 mg PRN DAILY PRN PO CONSTIPATION; Start 06/23/17 at 09:45 Enoxaparin Sodium (Lovenox 60mg Syringe) 60 mg Q12HR SQ ; Start 06/23/17 at 14: 00; Stop 06/24/17 at 18:00; Status DC Famotidine (Pepcid) 20 mg QHS IVP Last administered on 06/23/17 20:58; Start 06/23/17 at 21:00; Stop 06/24/17 at 11:12; Status DC Potassium Chloride (Klor-Con) 40 meq 1X ONCE PO Last administered on 10:48; Start 06/24/17 at 10:00; Stop 06/24/17 at 10:01; Status DC Ondansetron HCl (Zofran) 4 mg PRN Q6HRS PRN IV NAUSEA/VOMITING; Start 06/25/17 at 07:00; Stop 06/26/17 at 06:59 Fentanyl Citrate (Fentanyl 2ml Vial) 25 mcg PRN Q5MIN PRN IV MILD PAIN; Start 06/25/17 at 07:00; Stop 06/26/17 at 06:59 Fentanyl Citrate (Fentanyl 2ml Vial) 50 mcg PRN Q5MIN PRN IV MODERATE PAIN Last administered on 06/25/17 09:38; Start 06/25/17 at 07:00; Stop 06/26/17 at 06:59 Morphine Sulfate 1 mg PRN Q10MIN PRN IV SEVERE PAIN Last administered on 09:30; Start 06/25/17 at 07:00; Stop 06/26/17 at 06:59 Ringer's Solution 1,000 ml @ 0 mls/hr Q0M IV ; Start 06/25/17 at 07:00; Stop at 18:59 Lidocaine HCl (Xylocaine-Mpf 1% Vial) 2 ml PRN 1X PRN ID PRIOR TO IV START; Start 06/25/17 at 07:00; Stop 06/26/17 at 06:59 Hydromorphone HCl (Dilaudid) 0.5 mg PRN Q10MIN PRN IV SEV PAIN, Second choice; Start 06/25/17 at 07:00; Stop 06/26/17 at 06:59 Prochlorperazine Edisylate (Compazine) 5 mg PACU PRN PRN IV NAUSEA, MRX1 Last administered on 06/25/17 09:01; Start 06/25/17 at 07:00; Stop 06/26/17 at 06:59 Famotidine (Pepcid) 20 mg BID PO Last administered on 06/24/17 19:52; Start at 21:00 Cellulose 1 each STK-MED ONCE .ROUTE ; Start 06/25/17 at 07:15; Stop 06/25/17 at 07:16; Status DC Iohexol (Omnipaque 300 Mg/ml) 50 ml STK-MED ONCE .ROUTE Last administered on 07:51; Start 06/25/17 at 07:16; Stop 06/25/17 at 07:17; Status DC Bupivacaine HCl/ Epinephrine Bitart (Marcaine-Epi 0.5%-1:107215) 50 ml STK-MED ONCE .ROUTE ; Start 06/25/17 at 07:16; Stop 06/25/17 at 07:17; Status DC Bupivacaine HCl/ Epinephrine Bitart (Sensorcaine-Epi 0.25%-1:490831 Mpf) 30 ml 1X ONCE INJ Last administered on 06/25/17t 07:51; Start 06/25/17 at 07:30; Stop 06/25/17 at 07:31; Status DC Cefazolin Sodium 3 gm/Sodium Chloride 100 ml @ 200 mls/hr 1X PREOP ONCE IV Last administered on 06/25/17t 07:49; Start 06/25/17 at 07:30; Stop 06/25/17 at 07:59; Status DC Fentanyl Citrate (Fentanyl 2ml Vial) 100 mcg STK-MED ONCE .ROUTE ; Start at 07:48; Stop 06/25/17 at 07:49; Status DC Fentanyl Citrate (Fentanyl 2ml Vial) 100 mcg STK-MED ONCE .ROUTE ; Start at 07:48; Stop 06/25/17 at 07:49; Status DC Midazolam HCl (Versed) 2 mg STK-MED ONCE .ROUTE ; Start 06/25/17 at 07:56; Stop 06/25/17 at 07:57; Status DC Propofol 40 ml @ As Directed STK-MED ONCE IV ; Start 06/25/17 at 08:12; Stop at 08:13; Status DC Dexamethasone Sodium Phosphate (Decadron) 20 mg STK-MED ONCE .ROUTE ; Start at 08:12; Stop 06/25/17 at 08:13; Status DC Ondansetron HCl (Zofran) 4 mg STK-MED ONCE .ROUTE ; Start 06/25/17 at 08:12; Stop 06/25/17 at 08:13; Status DC Neostigmine Methylsulfate 5 mg STK-MED ONCE .ROUTE ; Start 06/25/17 at 08:13; Stop 06/25/17 at 08:14; Status DC Glycopyrrolate (Robinul) 1 mg STK-MED ONCE .ROUTE ; Start 06/25/17 at 08:13; Stop 06/25/17 at 08:14; Status DC Ketorolac Tromethamine (Toradol For Or Only) 60 mg STK-MED ONCE .ROUTE ; Start 06/25/17 at 08:22; Stop 06/25/17 at 08:23; Status DC Oxycodone/ Acetaminophen (Percocet 5/325) 1 tab PRN Q4HRS PRN PO PAIN; Start at 09:00 Oxycodone/ Acetaminophen (Percocet 5/325) 2 tab PRN Q4HRS PRN PO PAIN; Start at 09:00 Fentanyl Citrate (Fentanyl 2ml Vial) 100 mcg STK-MED ONCE .ROUTE ; Start at 08:54; Stop 06/25/17 at 08:55; Status DC Prochlorperazine Edisylate (Compazine) 10 mg STK-MED ONCE .ROUTE ; Start at 08:54; Stop 06/25/17 at 08:55; Status DC Morphine Sulfate 2 mg STK-MED ONCE .ROUTE ; Start 06/25/17 at 09:06; Stop at 09:07; Status DC Fentanyl Citrate (Fentanyl 2ml Vial) 100 mcg STK-MED ONCE .ROUTE ; Start at 09:06; Stop 06/25/17 at 09:07; Status DC Vitals/I & O Vital Sign - Last 24 Hours 06/24/17 06/24/17 06/24/17 06/24/17 15:00 19:00 19:55 19:56 Temp 97.9 97.9 97.9 97.9 Pulse 75 82 Resp 18 18 B/P (MAP) 140/85 (103) 128/70 (89) Pulse Ox 95 94 O2 Delivery Room Air Room Air Room Air Room Air 06/24/17 06/24/17 06/25/17 06/25/17 22:15 23:00 03:00 07:00 Temp 98.1 97.5 98.2 98.1 97.5 98.2 Pulse 75 80 75 Resp 18 18 20 B/P (MAP) 162/97 (118) 119/69 (86) 127/76 Pulse Ox 96 99 99 O2 Delivery Room Air Room Air Room Air Room Air 06/25/17 06/25/17 06/25/17 06/25/17 08:48 09:01 09:03 09:07 Temp 97.4 97.4 Pulse 71 78 Resp 16 16 14 16 B/P (MAP) 154/66 125/66 Pulse Ox 98 95 94 91 O2 Delivery Simple Mask Simple Mask Nasal Cannula Nasal Cannula O2 Flow Rate 10 10.0 2 2.0 06/25/17 06/25/17 06/25/17 06/25/17 09:10 09:16 09:18 09:22 Pulse 58 Resp 16 14 14 B/P (MAP) 121/65 Pulse Ox 94 97 97 O2 Delivery Nasal Cannula Nasal Cannula Nasal Cannula Nasal Cannula O2 Flow Rate 3 3.0 3 3.0 06/25/17 06/25/17 06/25/17 06/25/17 09:30 09:33 09:38 09:54 Temp 97.3 97.8 97.3 97.8 Pulse 58 57 Resp 14 14 14 18 B/P (MAP) 123/63 116/63 (80) Pulse Ox 96 97 97 98 O2 Delivery Nasal Cannula Nasal Cannula Nasal Cannula Nasal Cannula O2 Flow Rate 3.0 3 3.0 3.0 06/25/17 06/25/17 06/25/17 10:00 10:09 11:00 Temp 97.8 97.8 Pulse 67 Resp 18 B/P (MAP) 124/74 (91) Pulse Ox 98 O2 Delivery Nasal Cannula Nasal Cannula Nasal Cannula O2 Flow Rate 3.0 3.0 3.0 Intake and Output 06/25/17 06/25/17 06/26/17 15:00 23:00 07:00 Intake Total 1000 ml Balance 1000 ml MOIRA QUINTEROS MD Jun 25, 2017 11:51
[2017-06-25] MEDS: oxyCODONE/APAP 5/325 1 TAB TABLET PO PRN ×2 (12:47→21:41)
[2017-06-25 15:00] VITALS: BP 112/69
[2017-06-25] MEDS: traMADol 50 MG TABLET PO PRN (18:57)
[2017-06-25 19:24] VITALS: BP 142/77
[2017-06-25 23:21] VITALS: BP 115/53
[2017-06-26 03:28] VITALS: BP 105/60
[2017-06-26] MEDS: IV NORMAL SALINE 1000ML BAG 1,000 ML IV SCH ×2 (03:30→10:47)
[2017-06-26] MEDS: oxyCODONE/APAP 5/325 1 TAB TABLET PO PRN ×3 (03:33→10:36)
[2017-06-26 04:54] LABS: BASO # 0.1 x10^3/uL (0.0-0.2); BASO % 1 % (0-3); EOS % 1 % (0-3); HEMOGLOBIN 12.4 g/dL (12.0-15.5); LYMPH # 2.1 x10^3/uL (1.0-4.8); LYMPH % 19 % (24-48); MEAN CORPUSCULAR HEMOGLOBIN 29 pg (25-35); MEAN CORPUSCULAR HGB CONC 34 g/dL (31-37); MEAN CORPUSCULAR VOLUME 87 fL (79-100); MONO % 9 % (0-9); NEUT % 72 % (31-73); PLATELET COUNT 200 x10^3/uL (140-400); RED BLOOD COUNT 4.26 x10^6/uL (3.50-5.40); RED CELL DISTRIBUTION WIDTH 13.4 % (11.5-14.5); WHITE BLOOD COUNT 11.6 x10^3/uL (4.0-11.0)
[2017-06-26 05:31] LABS: ALBUMIN 2.6 g/dL (3.4-5.0); CALCIUM 8.7 mg/dL (8.5-10.1); CREATININE 0.6 mg/dL (0.6-1.0); DIRECT BILIRUBIN 0.4 mg/dL (0.0-0.2); POTASSIUM 3.8 mmol/L (3.5-5.1); TOTAL BILIRUBIN 0.7 mg/dL (0.2-1.0); TOTAL PROTEIN 5.9 g/dL (6.4-8.2)
[2017-06-26 07:00] VITALS: BP 110/68
[2017-06-26] MEDS: FAMOTIDINE 20 MG TABLET. PO SCH (08:56)
--- NOTE | 2017-06-26 11:03 | PDOC ---
BEVERLY ELIZONDO ACTUARIAL SCIENCE PROFESSOR 06/26/17 1103: SURGICAL PROGRESS NOTE Subjective tolerating diet incisional pain, worse with activity--pain meds manage no n/v Vital Signs Vital Signs Date Time Temp Pulse Resp B/P (MAP) Pulse Ox O2 Delivery O2 Flow Rate FiO2 06/26/17 10:36 97 Room Air 06/26/17 07:00 97.0 82 22 110/68 (82) 97.0 06/25/17 11:00 3.0 I&O Intake and Output 06/27/17 07:00 Intake Total 360 ml Balance 360 ml Intake Oral 360 ml General: Alert, Oriented X3, Cooperative, No acute distress Abdomen: Soft, Other (lap dressings dry, incisional TTP) Labs Laboratory Tests Test 06/25/17 03:51 06/26/17 04:17 White Blood Count 7.0 x10^3/uL (4.0-11.0) 11.6 x10^3/uL (4.0-11.0) Red Blood Count 4.33 x10^6/uL (3.50-5.40) 4.26 x10^6/uL (3.50-5.40) Hemoglobin 12.7 g/dL (12.0-15.5) 12.4 g/dL (12.0-15.5) Hematocrit 37.2 % (36.0-47.0) 37.0 % (36.0-47.0) Mean Corpuscular Volume 86 fL (79-100) 87 fL (79-100) Mean Corpuscular Hemoglobin 29 pg (25-35) 29 pg (25-35) Mean Corpuscular Hemoglobin Concent 34 g/dL (31-37) 34 g/dL (31-37) Red Cell Distribution Width 13.6 % (11.5-14.5) 13.4 % (11.5-14.5) Platelet Count 222 x10^3/uL (140-400) 200 x10^3/uL (140-400) Neutrophils (%) (Auto) 48 % (31-73) 72 % (31-73) Lymphocytes (%) (Auto) 42 % (24-48) 19 % (24-48) Monocytes (%) (Auto) 7 % (0-9) 9 % (0-9) Eosinophils (%) (Auto) 3 % (0-3) 1 % (0-3) Basophils (%) (Auto) 1 % (0-3) 1 % (0-3) Neutrophils # (Auto) 3.3 x10^3uL (1.8-7.7) 8.3 x10^3uL (1.8-7.7) Lymphocytes # (Auto) 2.9 x10^3/uL (1.0-4.8) 2.1 x10^3/uL (1.0-4.8) Monocytes # (Auto) 0.5 x10^3/uL (0.0-1.1) 1.0 x10^3/uL (0.0-1.1) Eosinophils # (Auto) 0.2 x10^3/uL (0.0-0.7) 0.1 x10^3/uL (0.0-0.7) Basophils # (Auto) 0.1 x10^3/uL (0.0-0.2) 0.1 x10^3/uL (0.0-0.2) Sodium Level 140 mmol/L (136-145) 142 mmol/L (136-145) Potassium Level 4.0 mmol/L (3.5-5.1) 3.8 mmol/L (3.5-5.1) Chloride Level 105 mmol/L (98-107) 107 mmol/L (98-107) Carbon Dioxide Level 28 mmol/L (21-32) 25 mmol/L (21-32) Anion Gap 7 (6-14) 10 (6-14) Blood Urea Nitrogen 4 mg/dL (7-20) 4 mg/dL (7-20) Creatinine 0.8 mg/dL (0.6-1.0) 0.6 mg/dL (0.6-1.0) Estimated GFR (Cockcroft-Gault) 103.3 144.0 Glucose Level 89 mg/dL (70-99) 106 mg/dL (70-99) Calcium Level 8.6 mg/dL (8.5-10.1) 8.7 mg/dL (8.5-10.1) Total Bilirubin 0.9 mg/dL (0.2-1.0) 0.7 mg/dL (0.2-1.0) Direct Bilirubin 0.5 mg/dL (0.0-0.2) 0.4 mg/dL (0.0-0.2) Aspartate Amino Transf (AST/SGOT) 29 U/L (15-37) 34 U/L (15-37) Alanine Aminotransferase (ALT/SGPT) 97 U/L (14-59) 78 U/L (14-59) Alkaline Phosphatase 173 U/L (46-116) 139 U/L (46-116) Total Protein 7.3 g/dL (6.4-8.2) 5.9 g/dL (6.4-8.2) Albumin 3.0 g/dL (3.4-5.0) 2.6 g/dL (3.4-5.0) Lipase 258 U/L (73-393) 139 U/L (73-393) Laboratory Tests Test 06/26/17 04:17 White Blood Count 11.6 x10^3/uL (4.0-11.0) Red Blood Count 4.26 x10^6/uL (3.50-5.40) Hemoglobin 12.4 g/dL (12.0-15.5) Hematocrit 37.0 % (36.0-47.0) Mean Corpuscular Volume 87 fL (79-100) Mean Corpuscular Hemoglobin 29 pg (25-35) Mean Corpuscular Hemoglobin Concent 34 g/dL (31-37) Red Cell Distribution Width 13.4 % (11.5-14.5) Platelet Count 200 x10^3/uL (140-400) Neutrophils (%) (Auto) 72 % (31-73) Lymphocytes (%) (Auto) 19 % (24-48) Monocytes (%) (Auto) 9 % (0-9) Eosinophils (%) (Auto) 1 % (0-3) Basophils (%) (Auto) 1 % (0-3) Neutrophils # (Auto) 8.3 x10^3uL (1.8-7.7) Lymphocytes # (Auto) 2.1 x10^3/uL (1.0-4.8) Monocytes # (Auto) 1.0 x10^3/uL (0.0-1.1) Eosinophils # (Auto) 0.1 x10^3/uL (0.0-0.7) Basophils # (Auto) 0.1 x10^3/uL (0.0-0.2) Sodium Level 142 mmol/L (136-145) Potassium Level 3.8 mmol/L (3.5-5.1) Chloride Level 107 mmol/L (98-107) Carbon Dioxide Level 25 mmol/L (21-32) Anion Gap 10 (6-14) Blood Urea Nitrogen 4 mg/dL (7-20) Creatinine 0.6 mg/dL (0.6-1.0) Estimated GFR (Cockcroft-Gault) 144.0 Glucose Level 106 mg/dL (70-99) Calcium Level 8.7 mg/dL (8.5-10.1) Total Bilirubin 0.7 mg/dL (0.2-1.0) Direct Bilirubin 0.4 mg/dL (0.0-0.2) Aspartate Amino Transf (AST/SGOT) 34 U/L (15-37) Alanine Aminotransferase (ALT/SGPT) 78 U/L (14-59) Alkaline Phosphatase 139 U/L (46-116) Total Protein 5.9 g/dL (6.4-8.2) Albumin 2.6 g/dL (3.4-5.0) Lipase 139 U/L (73-393) Problem List Problems Medical Problems: (1) Abdominal pain Status: Acute (2) Cholelithiasis Status: Acute (3) Pancreatitis Status: Acute Assessment/Plan s/p lap allen OK to [place] home FU 2 weeks Problems: APOORVA BOURNE MD 06/26/17 1108: SURGICAL PROGRESS NOTE Assessment/Plan Agree with Jacinta's assessment and plan. Problems: BEVERLY ELIZONDO APRN Jun 26, 2017 11:03 APOORVA BOURNE MD Jun 26, 2017 11:08
[2017-06-26] MEDS ORDERED: DOCU-109 PO (11:21)
[2017-06-26] MEDS ORDERED: OXYC1TAB7 PO (11:21)
--- NOTE | 2017-06-26 13:37 | PDOC3 ---
Discharge Summary [facility] Date of Admission: Jun 22, 2017 Discharge Date: Jun 26, 2017 Admitting Diagnosis abd pain with cholelithiasis mild elevated lipase with ? mild pancreatitis elevated transaminitis morbid obesity, BMI 56 Hx Lupus, but pt chose not taking meds at this time point mild low albumin, 2/2 liver dz, no malnutrition HYPOKALEMIA plan: fu with gi, sx lap allne today advance diet as per GI lipase, LFT daily decrease ivf to 100cc/h gi, dvt ppx replete K dc tmr History of Present Illness History of Present Illness ROS: no fever, chills, sob or chest pain slightly better abd pain, 4/10, epigastric no N/V, has gas, bm lipase normal , LFT better lap allen today Vitals Vitals Vital Signs Date Time Temp Pulse Resp B/P (MAP) Pulse Ox O2 Delivery O2 Flow Rate FiO2 06/25/17 11:00 97.8 67 18 124/74 (91) 98 Nasal Cannula 3.0 97.8 Physical Exam Problems: Final Diagnosis CONSULTS renal sx Brief Hospital Course Ms. Harper is a 26 old F, was transferred from [facility] FOR ABd pain, as per isabella Neff was found cholelithiasis. also found mild pancreatitis with elevated transaminitis. lipase normal fast. got lap allen yesterday. Still abd pain from sx, eating ok, low po appetite, has gas, no bm yet stable to dc home dc time 35min General: Alert, Oriented X3, Cooperative, No acute distress Heart: Regular rate, Normal S1, Normal S2, No murmurs Lungs: Clear Abdomen: Normal bowel sounds, Soft, Other (mildly TTP RUQ) Extremities: No cyanosis, No edema, Normal pulses Skin: No rashes, No significant lesion Problems: Disposition home CONDITION AT DISCHARGE: Improved Diet gi soft Scheduled PRN Docusate Sodium (Colace), 100 MG PO PRN DAILY PRN for CONSTIPATION Oxycodone Hcl/Acetaminophen (Oxycodone-Acetaminophen 5-325), 1 TAB PO PRN Q4HRS PRN for PAIN Follow Up sx in 2 weeks MOIRA QUINTEROS MD Jun 26, 2017 13:37
--- NOTE | 2017-06-28 11:04 | PATHOLOGY ---
PATHOLOGY REPORT * * * * * * * * FINAL DIAGNOSIS: Gallbladder, "gallbladder and contents, cholecystectomy": - Moderate chronic cholecystitis with cholelithiasis. (SHA:pit; 06/28/2017) REPORT ELECTRONICALLY SIGNED BY: Mahesh Morocho M.D. DATE/TIME: 06/28/2017 11:03 * * * * * * * * GROSS PATHOLOGY: Received in formalin labeled "Guerrero Harper, gallbladder sac with contents," is a 7.3 x 3.3 x 2.4 cm, partially opened gallbladder with purple robledo serosal surfaces. Opening the gallbladder reveals weldon brown, velvety mucosa and an average wall thickness of 0.3 cm. Calculi are present and no masses are noted grossly. There are multiple calculi and calculi fragments tightly impacted within the neck of the gallbladder. The entire lumen of the gallbladder is filled with calculi ranging from 0.2 up to 0.7 cm. Outside Medical Sales Representative sections from the body and fundus are submitted along with the proximal margin in cassette A1. (JPM; 06/25/17) INITIAL CPT CODE(S): A; 74887 Professional services performed by [facility] [place] [address] Technical services performed by [facility] at [address] [place] [address], [facility] [address] [address]. SPECIMEN(S) RECEIVED: A.Gallbladder sac with contents CLINICAL HISTORY: Gallstone pancreatitis PATIENT: GUERRERO HARPER /AGE: 110/12/1990 (Age: 26) PATIENT #: [id number] ALT CASE #: SPECIMEN COLLECTION DATE: 06/25/2017 SPECIMEN RECEIVED DATE: 06/25/2017 [facility] - [id number] [place] [address] - PHONE: [phone] * * * END OF REPORT * * *
== END 2017-06-26 14:10 | disposition home or self-care (01) | DRG 417 ==
LOC: ER 09:01 → 4 NORTH 10:39
PROVIDERS: ADMIT Internal Medicine; ATTEND Internal Medicine
PROC: BF141ZZ Fluoroscopy of Gallbladder, Bile Ducts and Pancreatic Ducts using Low Osmolar Contrast (ICD-10-PCS; 2017-06-25)
PROC: 0FT44ZZ Resection of Gallbladder, Percutaneous Endoscopic Approach (ICD-10-PCS; principal; 2017-06-25 07:30)
DX: K80.10 Calculus of gallbladder with chronic cholecystitis without obstruction (principal); K85.10 Biliary acute pancreatitis without necrosis or infection; Z68.43 Body mass index [BMI] 50.0-59.9, adult; E66.01 Morbid (severe) obesity due to excess calories; E87.6 Hypokalemia; M06.9 Rheumatoid arthritis, unspecified; R74.0 Nonspecific elevation of levels of transaminase and lactic acid dehydrogenase [LDH]; Z98.51 Tubal ligation status; Z84.89 Family history of other specified conditions
CPT/HCPCS: 36415; 74300; 80048; 80053; 80076; 81001; 81025; 83690; 85025; 85610; 85730; 86850; 86900; 86901; 88304; 96365; 96375; C1782; J0690; J0780; J1100; J1170; J1650; J1885; J2250; J2270; J2405; J2543; J2704; J2710; J3010; J3480; J3490; J7030; Q9967; S0028; 99285-25